=== PATIENT | male | born 1965 | race Caucasian/White ===

== ENCOUNTER 2017-01-16 11:13 | Day surgery (SDC) | payer OTHER ==
[2017-01-16] MEDS ORDERED: PROPOFOL 20 ML ONE ×2 (11:56)
[2017-01-16 12:21] VITALS: BMI 22.2
[2017-01-16 13:28] VITALS: TEMP 97.5
[2017-01-16 15:04] VITALS: BP 109/50; PULSE 64
--- NOTE | 2017-01-19 13:15 | PATH ---
Surgical Pathology Report Patient Name: MARISELA CISNEROS [facility]. Rec. #: [id number] /Age/Gender: 1965 (Age: 51) / M Account: [id number] Location: U-ENDOSCOPY Taken: 01/16/2017 Received: 01/16/2017 Reported: 01/19/2017 Physicians: Colt Swift M.D. Specimen(s) Received A: BX RECTAL POLYP B: BX POLYP CECUM C: BX POLYP SIGMOID Clinical History Colon cancer screening, previous suboptimal prep Colon polyps, diverticulosis Final Diagnosis A. RECTUM, POLYP, BIOPSY: HYPERPLASTIC POLYP. B. COLON, CECUM, POLYP, BIOPSY: POLYPOID FRAGMENTS OF COLONIC MUCOSA WITH PROMINENT REACTIVE LYMPHOID AGGREGATE. C. COLON, SIGMOID, POLYP, BIOPSY: FRAGMENTS OF HYPERPLASTIC-TYPE POLYP WITH FEATURES OF SESSILE SERRATED ADENOMA. Electronically Signed Carlos Arnold M.D. Gross Description A. Received in formalin, labeled "rectal polyp" are 2 [place], irregular portions of soft tissue averaging 0.2 cm in greatest dimension. The specimens are submitted in toto in one cassette. B. Received in formalin, labeled "biopsy polyp cecum" are 3 [place], irregular portions of soft tissue averaging 0.1 cm in greatest dimension. The specimens are submitted in toto in one cassette. C. Received in formalin, labeled "biopsy polyp sigmoid" are 3 [place], irregular portions of soft tissue ranging from 0.1-0.4 cm in greatest dimension. The specimens are submitted in toto in one cassette. [id number]/[id number]/2017
== END 2017-01-16 14:00 | disposition home or self-care (01) ==
LOC: JASU-ENDO 11:13
PROVIDERS: ATTEND Internal Medicine Gastroenterology
PROC: 0DBH8ZX Excision of Cecum, Via Natural or Artificial Opening Endoscopic, Diagnostic (ICD-10-PCS; 2017-01-16)
PROC: 0DBN8ZX Excision of Sigmoid Colon, Via Natural or Artificial Opening Endoscopic, Diagnostic (ICD-10-PCS; 2017-01-16)
PROC: 0DBP8ZX Excision of Rectum, Via Natural or Artificial Opening Endoscopic, Diagnostic (ICD-10-PCS; principal; 2017-01-16 12:30)
DX: Z12.11 Encounter for screening for malignant neoplasm of colon (principal); K62.1 Rectal polyp; D12.0 Benign neoplasm of cecum; D12.5 Benign neoplasm of sigmoid colon; K57.30 Diverticulosis of large intestine without perforation or abscess without bleeding; K64.8 Other hemorrhoids
CPT/HCPCS: 88305-TC

== ENCOUNTER 2017-02-07 11:08 | Emergency (ER) | payer OTHER ==
[2017-02-07 11:15] VITALS: BP 110/68; PULSE 75; TEMP 98.2; BMI 21.8
--- NOTE | 2017-02-07 11:35 | PDOC ---
History of Present Illness - General Chief Complaint: Eye Problem Stated Complaint: ALLERGIES Time Seen by Provider: 02/07/17 11:31 - History of Present Illness Initial Comments: 02/07/17 13:06 Pt. is a 51 y/o male who has a PMH of deafness, presents to the ED complaining of itchy eyes and sneezing for one week. Pt communicated through pen and paper. Pt. states that his symptoms started one week ago. Admits to itchy eyes, congestion, sneezing and a post nasal drip. Denies fevers, chills, n/v/d. Pt. did not use any over the counter treatments for his symptoms. Denies vision changes, spots, floaters, diploplia. Denies foreign body sensation in the eye Past History - Past Medical History Allergies/Adverse Reactions: Allergies Allergy/AdvReac Type Severity Reaction Status Date / Time No Known Allergies Allergy Verified 02/07/17 11:13 Home Medications: Ambulatory Orders Fluticasone Prop 0.05% Nasal [Flonase -] 1 - 2 spray NS DAILY #1 spray.pump 03/21 Ketotifen Fumarate [Eye Itch Relief] 10 ml OP BID #1 drops 02/07/17 Anemia: No Asthma: No Cancer: No Cardiac Disorders: No CVA: No COPD: No CHF: No Dementia: No Diabetes: No GI Disorders: No Disorders: No HTN: No Hypercholesterolemia: No Liver Disease: No Seizures: No Thyroid Disease: No Other medical history: DEAF - Surgical History Abdominal Surgery: No Appendectomy: No Cardiac Surgery: No Cholecystectomy: No Lung Surgery: No Neurologic Surgery: No Orthopedic Surgery: No - Psycho/Social/Smoking Cessation Hx Anxiety: No Suicidal Ideation: No Smoking History: Never smoked Hx Alcohol Use: No Drug/Substance Use Hx: No Substance Use Type: None Hx Substance Use Treatment: No *Physical Exam - Vital Signs Last Vital Signs Temp Pulse Resp BP Pulse Ox 98.2 F 75 20 110/68 98 02/07/17 11:09 02/07/17 11:09 02/07/17 11:09 02/07/17 11:09 02/07/17 11:09 - Physical Exam General Appearance: Yes: Nourished, Appropriately Dressed HEENT: positive: EOMI, PIYUSH, Pale Conjunctivae (with mild redness of conjunctiva ), Pharyngeal Erythema, Nasal Congestion, Rhinorrhea, TM Dull (with sclerosis of the membrane), Other (Fundoscopic exam shows no hemorrhage, normal cup size. ) Neck: positive: Trachea midline, Normal Thyroid. negative: Lymphadenopathy (R) , Lymphadenopathy (L) Respiratory/Chest: positive: Lungs Clear, Normal Breath Sounds, Rhonchi. negative: Accessory Muscle Use, Rales, Wheezing Cardiovascular: positive: Regular Rhythm, Regular Rate Medical Decision Making - Medical Decision Making 02/07/17 13:14 Pt. is a 51 y/o male presenting with itchy eyes, nasal congestion and serous fluid behind his membranes. Given his symptoms and history will treat pt. for seasonal allergies. Educated about seasonal allergies and instructed pt. to supervisor opening and picking Claritin or Zyrtec. Prescribed flonase and ketotfin for symptomatic relief. Pt. communicated understanding and has no questions at this time. *DC/Admit/Observation/Transfer Diagnosis at time of Disposition: Seasonal allergies Qualifiers: Allergic rhinitis trigger: other Qualified Code(s): J30.89 - Other allergic rhinitis - Discharge Dispostion Admit: No - Prescriptions Prescriptions: Ketotifen Fumarate [Eye Itch Relief] 10 ml OP BID #1 drops Fluticasone Prop 0.05% Nasal [Flonase -] 1 - 2 spray NS DAILY #1 spray.pump - Referrals Referrals: Leslie Zaidi MD [Primary Care Provider] - - Patient Instructions Printed Discharge Instructions: Allergic Rhinitis Additional Instructions: You have seasonal allergies. This is causing your itchy eyes. You were prescribed Flonase nasal spray and ketotifen eye drops to manage your symptoms. Start taking either Claritin or Zyrtec daily. These medications are over the counter. Keep your eyes moist to prevent any further irritation. In addition to the prescription eye drops, you may also use artificial tears (over the counter at the pharmacy) as needed. If your symptoms do not resolve or if you develop fevers, chills, or any new symptoms, return to the emergency department.
== END 2017-02-07 12:21 | disposition home or self-care (01) ==
LOC: JERFT 11:08 → JER 11:08 → JERFT 12:21
DX: J30.2 Other seasonal allergic rhinitis (principal); H91.90 Unspecified hearing loss, unspecified ear
CPT/HCPCS: 99281-25

== ENCOUNTER 2018-09-10 09:08 | Inpatient (IN) | payer OTHER ==
[2018-09-10 09:38] VITALS: BMI 22.9
--- NOTE | 2018-09-10 09:43 | PDOC ---
History of Present Illness - General Chief Complaint: Revisit, Lab Variance Stated Complaint: ABNORMAL LABS - History of Present Illness Initial Comments: The patient is a 53M w/ a history of deafness, and a urinary catheter in place who presents for evaluation after having an abn UA w/ UCx significant for psudomonas UTI. The patient reports a history of BPH, the catheter was placed [address] Lawton. Endorses lower abdominal pain. Denies pain at urethra meatus. Denies penile discharge. Denies fevers/chills, back pain, chest pain, SOB, hematuria, N/V/C/D, or blood in stool Pt interview conducted with signal inspector 09/10/18 09:42 Past History - Past Medical History Allergies/Adverse Reactions: Allergies Allergy/AdvReac Type Severity Reaction Status Date / Time No Known Allergies Allergy Verified 09/10/18 09:22 Home Medications: Ambulatory Orders NK [No Known Home Medication] 09/10/18 Anemia: No Asthma: No Cancer: No Cardiac Disorders: No CVA: No COPD: No CHF: No Dementia: No Diabetes: No GI Disorders: No Disorders: No HTN: No Hypercholesterolemia: No Liver Disease: No Seizures: No Thyroid Disease: No Other medical history: BPH - Surgical History Abdominal Surgery: No Appendectomy: No Cardiac Surgery: No Cholecystectomy: No Lung Surgery: No Neurologic Surgery: No Orthopedic Surgery: No - Immunization History Immunization Up to Date: Yes - Suicide/Smoking/Psychosocial Hx Smoking History: Former smoker Have you smoked in the past 12 months: No If you are a former smoker, when did you quit?: 30 yrs ago Information on smoking cessation initiated: No Hx Alcohol Use: No Drug/Substance Use Hx: No Substance Use Type: None Hx Substance Use Treatment: No Review of Systems - Review of Systems Able to Perform ROS?: Yes (w/ use of conference interpreter) Comments:: GENERAL/CONSTITUTIONAL: No fever or chills. No weakness HEAD, EYES, EARS, NOSE AND THROAT: No change in vision. No ear pain or discharge. No sore throat CARDIOVASCULAR: No chest pain or shortness of breath RESPIRATORY: Denies cough, hemoptysis GASTROINTESTINAL: No nausea, vomiting, diarrhea or constipation GENITOURINARY: +fabian in place; +difficulty urinating prior to fabian placement MUSCULOSKELETAL: No joint or muscle swelling or pain. No neck or back pain SKIN: No rash NEUROLOGIC: No headache, vertigo, loss of consciousness, or change in strength/ sensation ENDOCRINE: No increased thirst. No abnormal weight change HEMATOLOGIC/LYMPHATIC: No anemia, easy bleeding, or history of blood clots ALLERGIC/IMMUNOLOGIC: No hives or skin allergy 09/10/18 10:11 *Physical Exam - Vital Signs Last Vital Signs Temp Pulse Resp BP Pulse Ox 98.1 F 79 18 100/67 98 09/10/18 09:22 09/10/18 09:22 09/10/18 09:22 09/10/18 09:22 09/10/18 09:22 - Physical Exam Comments: GENERAL: Awake, alert, and fully oriented, in no acute distress HEAD: No signs of trauma, normocephalic, atraumatic EYES: PERRLA, EOMI, sclera anicteric, conjunctiva clear ENT: Hearing grossly normal, nares patent, oropharynx clear without exudates. Moist mucosa LUNGS: No distress, speaks full sentences, clear to auscultation bilaterally HEART: Regular rate and rhythm, normal S1 and S2, no murmurs appreciated, peripheral pulses normal and equal bilaterally ABDOMEN: Soft, suprapubic TTP w/o rebound or guarding, normoactive bowel sounds : fabian in place, urine in fabian bag cloudy and yellow-orange in color EXTREMITIES : Normal inspection, Normal range of motion, no edema. No clubbing or cyanosis NEUROLOGICAL: Cranial nerves II through XII grossly intact. Normal speech, normal gait, no focal sensorimotor deficits SKIN: Warm, Dry, normal turgor, no rashes or lesions noted 09/10/18 10:12 Moderate Sedation - Procedure Monitoring Vital Signs: Procedure Monitoring Vital Signs Temperature 98.1 F 09/10/18 09:22 Pulse Rate 79 09/10/18 09:22 Respiratory Rate 18 09/10/18 09:22 Blood Pressure 100/67 09/10/18 09:22 O2 Sat by Pulse Oximetry (%) 98 09/10/18 09:22 ED Treatment Course - LABORATORY CBC & Chemistry Diagram: 09/10/18 10:36 09/10/18 10:36 Medical Decision Making - Medical Decision Making The patient is a 53M w/ a history of BPH who presents for evaluation of a Ucx significant for pseudomonas UTI ED Course UA, UCx, CMP, CBC 09/10/18 10:14 No leukocytosis No anemia No DAGOBERTO Lytes wnl LFTs wnl Fabian replaced w/ 16f catheter 09/10/18 11:35 UA pending 09/10/18 12:41 UA: LE 3+ Ceftazadime 1g IV once based on sensitivities patient brought in from recent UCx 09/10/18 13:16 Dispo: admit for IV abx 09/10/18 15:27 *DC/Admit/Observation/Transfer Diagnosis at time of Disposition: Pseudomonas urinary tract infection - Discharge Dispostion Condition at time of disposition: Stable - Referrals Referrals: Leslie Zaidi MD [Primary Care Provider] - Eladio Lawton MD [Staff Physician] - - Patient Instructions Printed Discharge Instructions: DI for Urinary Tract Infection (UTI) - Post Discharge Activity
--- NOTE | 2018-09-10 10:39 | PDOC ---
Attending Attestation - HPI HPI: 09/10/18 10:57 The patient is a 53 year old male, with a significant past medical history of deafness and BPH, who presents to the emergency department with, abnormal UA results. As per patient, his urologist placed a catheter a week ago and upon routine urine testing it was found to be pseudomonas positive. He endorses his urine in the catheter has been cloudy, concentrated, and he has been experiencing suprapubic pressure without hematuria. He notes prior to his catheter he was experiencing dysuria and retention. He denies any recent fevers, chills, headache or dizziness. He denies any recent nausea, vomit, diarrhea or constipation. He denies any recent chest pain or shortness of breath. Allergies: NKDA Social History: Nonsmoker. Denies EtOH use and recreational drug use. Primary Care Physician: Dr. Zaidi Urologist: Dr. Lawton <[email or web address] - Last Filed: 09/10/18 10:57> - Resident Resident Name: Rikki Archer - ED Attending Attestation I have performed the following: I have examined & evaluated the patient, The case was reviewed & discussed with the resident, I agree w/resident's findings & plan, Exceptions are as noted - Physicial Exam PE: 09/11/18 16:27 see above - Medical Decision Making 09/10/18 10:38 53y M hx of bph presents with +urine culture for pseudomonas, pt had recent fabian placed 1 week ago. pt is otherwise asymptomatic without any complaints of fever/chills, back pain, hematuria, n/v. pt notes some couldy urine. no history of urinary tract infections. urologist - dr. Adal Win GENERAL: The patient is awake, alert, and fully oriented, Nontoxic - in no acute distress. LUNGS: Breath sounds equal, clear to auscultation bilaterally. No wheezes, no rhonchi, no rales. HEART: Regular rate and rhythm, normal S1 and S2 without murmur, rub or gallop. ABDOMEN: Soft, nontender, normoactive bowel sounds. No guarding, no rebound. No CVA tenderness SKIN: Warm, Dry, normal turgor, will ck bsaic labs repeat UA adin ldiscuss with dr. adal win - ossible outpatient management with a flouroquinalone 12/07/18 12:[address] neff office requests admission for ivabx as pt has many resistant organisms (pt has outpatient culture and sensitivity results) <Balwinder Oconnor - Last Filed: 09/11/18 16:28> Attestations - Attestations 09/10/18 10:57 Documentation prepared by Elvia Linares, acting as director medical safety for Balwinder Oconnor MD. <Elvia Linares - Last Filed: 09/10/18 10:57>
[2018-09-10 11:02] LABS: HEMATOCRIT 42.5 % (35.4-49); HEMOGLOBIN 13.5 GM/dL (11.7-16.9); MCH 28.7 pg (25.7-33.7); MCHC 31.7 g/dl (32.0-35.9); MEAN CELL VOLUME 90.4 fl (80-96); MEAN PLT VOLUME 7.1 fl (7.5-11.1); PLATELET COUNT 173 K/MM3 (134-434); RDW 14.3 % (11.9-15.9); WHITE BLOOD COUNT 3.7 K/mm3 (4.0-10.0)
[2018-09-10 11:25] LABS: ALBUMIN 3.4 g/dl (3.4-5.0); ALK PHOS 86 U/L (45-117); ANION GAP 7 MMOL/L (8-16); BILIRUBIN,TOTAL 0.5 mg/dL (0.2-1); BLOOD UREA NITROGEN 19 mg/dL (7-18); CALCIUM 8.4 mg/dL (8.5-10.1); CHLORIDE 107 mmol/L (98-107); CO2 28 mmol/L (21-32); CREATININE 0.9 mg/dL (0.55-1.3); GLUCOSE,RANDOM 88 mg/dL (74-106); POTASSIUM 4.2 mmol/L (3.5-5.1); SGOT/AST 23 U/L (15-37); SGPT/ALT 24 U/L (13-61); SODIUM 142 mmol/L (136-145); TOT PROT 6.6 g/dl (6.4-8.2)
[2018-09-10 12:40] LABS: URINE APPEARANCE SLCLOUDY; URINE BILIRUBIN NEGATIVE (<2.0 mg/dL); URINE COLOR STRAW; URINE GLUCOSE (UA) NEGATIVE (NEGATIVE); URINE KETONE NEGATIVE (NEGATIVE); URINE LEUK ESTERASE 3+ (NEGATIVE); URINE NITRITE NEGATIVE (NEGATIVE); URINE PROTEIN NEGATIVE (NEGATIVE); URINE UROBILINOGEN NEGATIVE mg/dL (0.2-1.0)
[2018-09-10 13:16] LABS: URINE BACTERIA MANY /hpf (NONE SEEN)
[2018-09-10] MEDS ORDERED: cefTAZidime PENTAHYDRATE 1 GM/10 ML SYRINGE (RESTRICTED TO ID) IVPUSH ONE (13:16)
--- NOTE | 2018-09-10 14:03 | PN ---
Teaching Attending Note Name of Resident: Lea Recinos ATTENDING PHYSICIAN STATEMENT I saw and evaluated the patient. I reviewed the resident's note and discussed the case with the resident. I agree with the resident's findings and plan as documented. SUBJECTIVE: Patient is a 53yo male with a PMHx of of deafness( congenital since age 1yo) who presents with having urinary urgency with frequency , no fever but rigors om and off . Patient had a cystoscopy less then a month ago. He was following up with Jered for having burning on urination and chills. A urine culture grew Pseudomonas and he was instructed to go to the ED. Patient reports he has not had symptoms like this in the past. He has noticed blood in his urine. He denies any recent sexual contacts. Patient was on Ciprofloxacin on 08/16. Used deaf talk, guyanese sign language to interpret for patient. OBJECTIVE: Vital Signs Temperature 98.1 F 09/10/18 13:16 Pulse Rate 68 09/10/18 13:16 Respiratory Rate 17 09/10/18 13:16 Blood Pressure 99/63 09/10/18 13:16 O2 Sat by Pulse Oximetry (%) 100 09/10/18 13:16 GENERAL: Awake, alert, and fully oriented, in no acute distress. HEAD: Normal with no signs of trauma. EYES: Pupils equal, round and reactive to light, extraocular movements intact EARS, NOSE, THROAT: Moist mucous membranes. NECK: Normal range of motion LUNGS: Breath sounds equal, clear to auscultation bilaterally. No wheezes, and no crackles. No accessory muscle use. HEART: Regular rate and rhythm, normal S1 and S2 without murmur, rub or gallop. ABDOMEN: tenderness to periumbilical palpation MUSCULOSKELETAL: Normal range of motion at all joints. No bony deformities or tenderness. No CVA tenderness. LOWER EXTREMITIES: 2+ pulses, warm, well-perfused. No calf tenderness. No peripheral edema. NEUROLOGICAL: Cranial nerves II-XII intact. Normal speech. PSYCHIATRIC: Cooperative. Good eye contact. Appropriate mood and affect. SKIN: Warm, dry, normal turgor, no rashes or lesions noted, normal capillary refill. CBCD WBC 3.7 K/mm3 (4.0-10.0) L 09/10/18 10:36 RBC 4.70 M/mm3 (4.00-5.60) 09/10/18 10:36 Hgb 13.5 GM/dL (11.7-16.9) 09/10/18 10:36 Hct 42.5 % (35.4-49) 09/10/18 10:36 MCV 90.4 fl (80-96) 09/10/18 10:36 MCHC 31.7 g/dl (32.0-35.9) L 09/10/18 10:36 RDW 14.3 % (11.9-15.9) 09/10/18 10:36 Plt Count 173 K/MM3 (134-434) 09/10/18 10:36 MPV 7.1 fl (7.5-11.1) L 09/10/18 10:36 CMP Sodium 142 mmol/L (136-145) 09/10/18 10:36 Potassium 4.2 mmol/L (3.5-5.1) 09/10/18 10:36 Chloride 107 mmol/L (98-107) 09/10/18 10:36 Carbon Dioxide 28 mmol/L (21-32) 09/10/18 10:36 Anion Gap 7 MMOL/L (8-16) L 09/10/18 10:36 BUN 19 mg/dL (7-18) H 09/10/18 10:36 Creatinine 0.9 mg/dL (0.55-1.3) 09/10/18 10:36 Creat Clearance w eGFR > 60 (>60) 09/10/18 10:36 Random Glucose 88 mg/dL (74-106) 09/10/18 10:36 Calcium 8.4 mg/dL (8.5-10.1) L 09/10/18 10:36 Total Bilirubin 0.5 mg/dL (0.2-1) 09/10/18 10:36 AST 23 U/L (15-37) 09/10/18 10:36 ALT 24 U/L (13-61) 09/10/18 10:36 Alkaline Phosphatase 86 U/L (45-117) 09/10/18 10:36 Total Protein 6.6 g/dl (6.4-8.2) 09/10/18 10:36 Albumin 3.4 g/dl (3.4-5.0) 09/10/18 10:36 Current Medications Generic Name Dose Route Start Last Admin Trade Name Benitoq PRN Reason Stop Dose Admin Ceftazidime 2 gm 09/10/18 18:00 Fortaz 1 Gm Ivpb (Pre-Docked) IVPB Q8H-IV [facility] Protocol Heparin Sodium (Porcine) 5,000 unit 09/10/18 18:00 Heparin - SQ Q8H-IV [facility] Home Medications Medication Instructions Recorded NK [No Known Home Medication] 09/10/18 ASSESSMENT AND PLAN: Patient is a 53 y/o male with a history deafness who presents to ED. for UTI. patient has a fabian catheter( came in from home with bed #Acute UTI due to Pseudomonas will start Ceftazidime 1 gm (sensitive) , ID consult Dr. Mendez #BPH continue tamsulosin # Hx of Congenital deafness #DVT ppx: heparin TID
--- NOTE | 2018-09-10 14:58 | HP ---
CHIEF COMPLAINT: dysuria PCP: HISTORY OF PRESENT ILLNESS: Patient is a 53 y/o male with a history deafness who presents for UTI. Patient had a cystoscopy less then a month ago. He was following up with Jered for having burning on urination and chills. A urine culture grew Pseudomonas and he was instructed to go to the ED. Patient reports he has not had symptoms like this in the past. He has noticed blood in his urine. He denies any recent sexual contacts. No recent travel. Denies chest pain, nausea, vomiting, or shortness of breath. Patient took Ciprofloxacin on 08/16. Used deaf talk, bots[place]an sign language to interpret for patient. ER course was notable for: (1) (2) (3) Recent Travel: denies PAST MEDICAL HISTORY: deafness at the age of [age] due to fluid in his head) PAST SURGICAL HISTORY: denies Social History: Smoking: denies Alcohol: denies Drugs: denies Family History: Allergies No Known Allergies Allergy (Verified 09/10/18 09:22) HOME MEDICATIONS: Home Medications Medication Instructions Recorded NK [No Known Home Medication] 09/10/18 REVIEW OF SYSTEMS CONSTITUTIONAL: chills Absent: fever, diaphoresis, generalized weakness, malaise, loss of appetite, weight change HEENT: Absent: rhinorrhea, nasal congestion, throat pain, throat swelling, difficulty swallowing, mouth swelling, ear pain, eye pain, visual changes CARDIOVASCULAR: Absent: chest pain, syncope, palpitations, irregular heart rate, lightheadedness , peripheral edema RESPIRATORY: Absent: cough, shortness of breath, dyspnea with exertion, orthopnea, wheezing, stridor, hemoptysis GASTROINTESTINAL: Absent: abdominal pain, abdominal distension, nausea, vomiting, diarrhea, constipation, melena, hematochezia GENITOURINARY: frequency, dysuria, hematuria Absent: urgency, hesitancy, flank pain, genital pain MUSCULOSKELETAL: Absent: myalgia, arthralgia, joint swelling, back pain, neck pain SKIN: Absent: rash, itching, pallor HEMATOLOGIC/IMMUNOLOGIC: Absent: easy bleeding, easy bruising, lymphadenopathy, frequent infections ENDOCRINE: Absent: unexplained weight gain, unexplained weight loss, heat intolerance, cold intolerance NEUROLOGIC: Absent: headache, focal weakness or paresthesias, dizziness, unsteady gait, seizure, mental status changes, bladder or bowel incontinence PSYCHIATRIC: Absent: anxiety, depression, suicidal or homicidal ideation, hallucinations. PHYSICAL EXAMINATION Vital Signs - 24 hr 09/10/18 09/10/18 09:22 13:16 Temperature 98.1 F 98.1 F Pulse Rate 79 Pulse Rate [ 68 Right Radial] Respiratory 18 17 Rate Blood Pressure 100/67 Blood Pressure 99/63 [Left Arm] O2 Sat by Pulse 98 100 Oximetry (%) GENERAL: Awake, alert, and fully oriented, in no acute distress. HEAD: Normal with no signs of trauma. EYES: Pupils equal, round and reactive to light, extraocular movements intact EARS, NOSE, THROAT: Moist mucous membranes. NECK: Normal range of motion LUNGS: Breath sounds equal, clear to auscultation bilaterally. No wheezes, and no crackles. No accessory muscle use. HEART: Regular rate and rhythm, normal S1 and S2 without murmur, rub or gallop. ABDOMEN: tenderness to periumbilical palpation MUSCULOSKELETAL: Normal range of motion at all joints. No bony deformities or tenderness. No CVA tenderness. LOWER EXTREMITIES: 2+ pulses, warm, well-perfused. No calf tenderness. No peripheral edema. NEUROLOGICAL: Cranial nerves II-XII intact. Normal speech. PSYCHIATRIC: Cooperative. Good eye contact. Appropriate mood and affect. SKIN: Warm, dry, normal turgor, no rashes or lesions noted, normal capillary refill. CBC, BMP 09/10/18 10:36 09/10/18 10:36 Urine Test Results Urine Color Straw 09/10/18 11:38 Urine Appearance Slcloudy 09/10/18 11:38 Urine pH 6.0 (5.0-8.0) 09/10/18 11:38 Ur Specific Gilman 1.002 (1.010-1.035) L 09/10/18 11:38 Urine Protein Negative (NEGATIVE) 09/10/18 11:38 Urine Glucose (UA) Negative (NEGATIVE) 09/10/18 11:38 Urine Ketones Negative (NEGATIVE) 09/10/18 11:38 Urine Blood 2+ (NEGATIVE) H 09/10/18 11:38 Urine Nitrite Negative (NEGATIVE) 09/10/18 11:38 Urine Bilirubin Negative (<2.0 mg/dL) 09/10/18 11:38 Ur Leukocyte Esterase 3+ (NEGATIVE) H 09/10/18 11:38 Urine Bacteria Many /hpf (NONE SEEN) 09/10/18 11:38 ASSESSMENT/PLAN: Patient is a 53 y/o male with a history deafness who presents for UTI. #sepsis 2/2 to UTI 2/2 to Pseudomonas - Ceftazidime 1 gm (sensitive) - f/u ID consult Dr. Mendez - f/u renal and bladder US - BP 99/63 - WBC: 3.7 - bcx pending - UA: 3+ LE, 2+ blood WBC: 64, many bacteria - fabian in place - f/u morning labs - failed outpatient abx, recently on Ciprofloxacin 500 mg #BPH - continue tamsulosin #DVT ppx - heparin TID FEN - regular diet - monitor on med surg Dispo: monitor clinically, continue IV abx Visit type - Emergency Visit Emergency Visit: No - New Patient This patient is new to me today: No - Critical Care Critical Care patient: No
[2018-09-10] MEDS ORDERED: CEFTAZIDIME PENTAHYDRATE 1 GM in DEXTROSE 5%-WATER 100 ML IVPB SCH (18:00)
[2018-09-10] MEDS: HEPARIN NA (PORCINE) 5,000 UNITS/ML 1ML VIAL SQ SCH (23:01)
[2018-09-10] MEDS: SODIUM CHLORIDE 1,000 ML IV SCH (23:01)
[2018-09-11] MEDS: CEFTAZIDIME PENTAHYDRATE 1 GM in DEXTROSE 5%-WATER 100 ML IVPB SCH ×3 (00:12→17:38)
[2018-09-11] MEDS: HEPARIN NA (PORCINE) 5,000 UNITS/ML 1ML VIAL SQ SCH ×3 (06:20→21:13)
[2018-09-11 06:58] LABS: BASO % 0.9 % (0-2.0); EOS % 4.3 % (0-4.5); HEMATOCRIT 43.1 % (35.4-49); HEMOGLOBIN 13.8 GM/dL (11.7-16.9); LYMPH % 40.2 % (8-40); MCHC 32.1 g/dl (32.0-35.9); MEAN CELL VOLUME 90.2 fl (80-96); MEAN PLT VOLUME 7.4 fl (7.5-11.1); MONO % 8.4 % (3.8-10.2); NEUT % 46.2 % (42.8-82.8); PLATELET COUNT 162 K/MM3 (134-434); RBC 4.78 M/mm3 (4.00-5.60); RDW 14.3 % (11.9-15.9); WHITE BLOOD COUNT 3.7 K/mm3 (4.0-10.0)
[2018-09-11 07:41] LABS: ALBUMIN 3.1 g/dl (3.4-5.0); ALK PHOS 75 U/L (45-117); ANION GAP 7 MMOL/L (8-16); BILIRUBIN,TOTAL 0.6 mg/dL (0.2-1); BLOOD UREA NITROGEN 12 mg/dL (7-18); CALCIUM 8.2 mg/dL (8.5-10.1); CHLORIDE 108 mmol/L (98-107); CO2 27 mmol/L (21-32); CREATININE 0.9 mg/dL (0.55-1.3); GLUCOSE,RANDOM 82 mg/dL (74-106); MAGNESIUM 2.2 mg/dL (1.8-2.4); PHOSPHOROUS 3.6 mg/dL (2.5-4.9); POTASSIUM 4.3 mmol/L (3.5-5.1); SGOT/AST 24 U/L (15-37); SGPT/ALT 20 U/L (13-61); SODIUM 142 mmol/L (136-145); TOT PROT 6.3 g/dl (6.4-8.2)
[2018-09-11] MEDS: SODIUM CHLORIDE 1,000 ML IV SCH (08:39)
[2018-09-11] MEDS: TAMSULOSIN HCL 0.4 MG CAP PO SCH (09:39)
--- NOTE | 2018-09-11 15:19 | PN ---
Progress Note (short form) - Note Progress Note: ID Consult dictated Pseudomonas UTI Urinary retention Leukopenia Await c/s Continue ceftazidime Urology follow up
--- NOTE | 2018-09-11 16:41 | CONS ---
DATE OF CONSULTATION: DATE OF DICTATION: 09/11/2018 HISTORY OF PRESENT ILLNESS: The patient is a 53-year-old male evaluated for a positive urine culture. His history is obtained from the chart. He had apparently undergone a cystoscopy less than a month ago for BPH. He required insertion of a Hooker catheter approximately one week ago for acute urinary retention. He is now admitted to the hospital with reports of recent dysuria, chills and gross hematuria. According to the notes, he had been treated with ciprofloxacin. However, a urine culture was positive for a quinolone-resistant pseudomonas. His hospital course has been significant for leukopenia. He has been afebrile. PAST MEDICAL HISTORY: Positive for benign prostatic hypertrophy and deafness . ALLERGIES: No known drug allergies. CURRENT MEDICATIONS: Ceftazidime and Flomax. SOCIAL HISTORY: The patient lives at home in the community. He is a former smoker. LABORATORY DATA: White count 3.7, 46 neutrophils, 40 lymphocytes, 8 monocytes. Hematocrit 43.1, platelet count 162, creatinine 0.9. Urinalysis showed 64 white cells. A urine culture is growing presumed pseudomonas. PHYSICAL EXAMINATION: General: The patient is awake. He has a hearing deficit. He does not appear acutely toxic. Vital Signs: Temperature 98.4, pulse 60 and regular, blood pressure 104/54, respiratory rate 28 per minute. HEENT:: Sclerae anicteric. Heart: Heart sounds S1, S2. Lungs: Clear. Abdomen: Soft. No suprapubic or flank tenderness. Extremities: Negative for edema. A Hooker catheter is in place. Urine is concentrated. IMPRESSION: 1. Pseudomonas urinary tract infection. 2. Urinary retention status post Hooker catheter insertion. 3. Leukopenia. PLAN: 1. Await urine culture result. 2. Continue ceftazidime 1 gram IV piggyback every 8 hours pending culture results. 3. Urology followup. Thank you for the kind referral. DIEGO PINEDA M.D. [id number]
[2018-09-11] MEDS ORDERED: PT OWN MED DRAWER 7, Y5N ONE ×3 (17:12→23:33)
--- NOTE | 2018-09-11 17:29 | PN ---
Progress Note (short form) - Note Progress Note: Patient is feeling better today, no fever or pain, no headache, no CVA tenderness. Vital Signs Temperature 98.4 F 09/11/18 14:00 Pulse Rate 60 09/11/18 14:00 Respiratory Rate 18 09/11/18 14:00 Blood Pressure 104/54 L 09/11/18 14:00 O2 Sat by Pulse Oximetry (%) 97 09/10/18 21:00 GENERAL: Awake, alert, and fully oriented, in no acute distress. HEAD: Normal with no signs of trauma. EYES: Pupils equal, round and reactive to light, extraocular movements intact EARS, NOSE, THROAT: Moist mucous membranes. NECK: Normal range of motion LUNGS: Breath sounds equal, clear to auscultation bilaterally. No wheezes, and no crackles. No accessory muscle use. HEART: Regular rate and rhythm, normal S1 and S2 without murmur, rub or gallop. ABDOMEN: no tenderness today, BS positive MUSCULOSKELETAL: Normal range of motion at all joints. No bony deformities or tenderness. No CVA tenderness today. EXTREMITIES: 2+ pulses, warm, well-perfused. No calf tenderness. No peripheral edema. NEUROLOGICAL: Cranial nerves II-XII intact. Normal speech. PSYCHIATRIC: Cooperative. Good eye contact. Appropriate mood and affect. SKIN: Warm, dry, normal turgor, no rashes or lesions noted, normal capillary refill. : positive for Hooker catether CBCD WBC 3.7 K/mm3 (4.0-10.0) L 09/11/18 06:30 RBC 4.78 M/mm3 (4.00-5.60) 09/11/18 06:30 Hgb 13.8 GM/dL (11.7-16.9) 09/11/18 06:30 Hct 43.1 % (35.4-49) 09/11/18 06:30 MCV 90.2 fl (80-96) 09/11/18 06:30 MCHC 32.1 g/dl (32.0-35.9) 09/11/18 06:30 RDW 14.3 % (11.9-15.9) 09/11/18 06:30 Plt Count 162 K/MM3 (134-434) 09/11/18 06:30 MPV 7.4 fl (7.5-11.1) L 09/11/18 06:30 CMP Sodium 142 mmol/L (136-145) 09/11/18 06:30 Potassium 4.3 mmol/L (3.5-5.1) 09/11/18 06:30 Chloride 108 mmol/L (98-107) H 09/11/18 06:30 Carbon Dioxide 27 mmol/L (21-32) 09/11/18 06:30 Anion Gap 7 MMOL/L (8-16) L 09/11/18 06:30 BUN 12 mg/dL (7-18) 09/11/18 06:30 Creatinine 0.9 mg/dL (0.55-1.3) 09/11/18 06:30 Creat Clearance w eGFR > 60 (>60) 09/11/18 06:30 Random Glucose 82 mg/dL (74-106) 09/11/18 06:30 Calcium 8.2 mg/dL (8.5-10.1) L 09/11/18 06:30 Total Bilirubin 0.6 mg/dL (0.2-1) 09/11/18 06:30 AST 24 U/L (15-37) 09/11/18 06:30 ALT 20 U/L (13-61) 09/11/18 06:30 Alkaline Phosphatase 75 U/L (45-117) 09/11/18 06:30 Total Protein 6.3 g/dl (6.4-8.2) L 09/11/18 06:30 Albumin 3.1 g/dl (3.4-5.0) L 09/11/18 06:30 Current Medications Generic Name Dose Route Start Last Admin Trade Name Benitoq PRN Reason Stop Dose Admin Heparin Sodium (Porcine) 5,000 unit 09/10/18 22:00 09/11/18 13:59 Heparin - SQ 5,000 unit TID ESEQUIEL Administration Sodium Chloride 1,000 mls @ 125 mls/hr 09/10/18 19:45 09/11/18 08:39 Normal Saline - IV 09/12/18 03:44 125 mls/hr ASDIR ESEQUIEL Administration Ceftazidime 1 gm/ Dextrose 100 mls @ 200 mls/hr 09/11/18 18:00 IVPB Q8H-IV ESEQUIEL Protocol Tamsulosin HCl 0.4 mg 09/11/18 08:30 09/11/18 09:39 Flomax - PO 0.4 mg DAILY@0830 [facility] Administration Home Medications Medication Instructions Recorded Tamsulosin HCl 0.4 mg PO DAILY 09/10/18 Microbiology 09/10/18 09:41 Urine - Urine Hooker Urine Culture - Preliminary Presumptive Ps Aeruginosa Non Lactose Fermenting Gnb ASSESSMENT AND PLAN: Patient is a 53 y/o male with a history deafness who presents for UTI. #Acute UTI due to Pseudomonas continue Ceftazidime 1 gm (sensitive) , ID consult Dr. Mendez appreciated , US and renal US report in place. Mild hydronephrosis will get [place] consult. #BPH continue tamsulosin # Hx of Congenital deafness #DVT ppx: heparin TID Visit type - Emergency Visit Emergency Visit: Yes ED Registration Date: 09/10/18 Care time: The patient presented to the Emergency Department on the above date and was hospitalized for further evaluation of their emergent condition. - New Patient This patient is new to me today: No - Critical Care Critical Care patient: No - Discharge Referral Referred to [facility] No
[2018-09-12] MEDS: CEFTAZIDIME PENTAHYDRATE 1 GM in DEXTROSE 5%-WATER 100 ML IVPB SCH ×3 (02:37→17:59)
[2018-09-12] MEDS: HEPARIN NA (PORCINE) 5,000 UNITS/ML 1ML VIAL SQ SCH ×3 (05:43→21:23)
--- NOTE | 2018-09-12 08:33 | PN ---
Teaching Attending Note Name of Resident: Melissa Jordan ATTENDING PHYSICIAN STATEMENT I saw and evaluated the patient. I reviewed the resident's note and discussed the case with the resident. I agree with the resident's findings and plan as documented. SUBJECTIVE: Patient is comfortable with no acute distress. OBJECTIVE: Vital Signs Temperature 97.5 F L 09/12/18 05:51 Pulse Rate 59 L 09/12/18 05:51 Respiratory Rate 18 09/12/18 05:51 Blood Pressure 106/64 09/12/18 05:51 O2 Sat by Pulse Oximetry (%) 96 09/11/18 21:00 GENERAL: Awake, alert, and fully oriented, in no acute distress. HEAD: Normal with no signs of trauma. EYES: Pupils equal, round and reactive to light, extraocular movements intact EARS, NOSE, THROAT: Moist mucous membranes.NECK: Normal range of motion LUNGS: Breath sounds equal, clear to auscultation bilaterally. No wheezes, and no crackles. No accessory muscle use. HEART: Regular rate and rhythm, normal S1 and S2 without murmur, rub or gallop. ABDOMEN: no tenderness today, BS positive MUSCULOSKELETAL: Normal range of motion at all joints. No bony deformities or tenderness. No CVA tenderness today. EXTREMITIES: 2+ pulses, warm, well-perfused. No calf tenderness. No peripheral edema. NEUROLOGICAL: Cranial nerves II-XII intact. Normal speech. PSYCHIATRIC: Cooperative. Good eye contact. Appropriate mood and affect. SKIN: Warm, dry, normal turgor, no rashes or lesions noted, normal capillary refill. : positive for Hooker catether CBCD WBC 3.7 K/mm3 (4.0-10.0) L 09/11/18 06:30 RBC 4.78 M/mm3 (4.00-5.60) 09/11/18 06:30 Hgb 13.8 GM/dL (11.7-16.9) 09/11/18 06:30 Hct 43.1 % (35.4-49) 09/11/18 06:30 MCV 90.2 fl (80-96) 09/11/18 06:30 MCHC 32.1 g/dl (32.0-35.9) 09/11/18 06:30 RDW 14.3 % (11.9-15.9) 09/11/18 06:30 Plt Count 162 K/MM3 (134-434) 09/11/18 06:30 MPV 7.4 fl (7.5-11.1) L 09/11/18 06:30 CMP Sodium 142 mmol/L (136-145) 09/11/18 06:30 Potassium 4.3 mmol/L (3.5-5.1) 09/11/18 06:30 Chloride 108 mmol/L (98-107) H 09/11/18 06:30 Carbon Dioxide 27 mmol/L (21-32) 09/11/18 06:30 Anion Gap 7 MMOL/L (8-16) L 09/11/18 06:30 BUN 12 mg/dL (7-18) 09/11/18 06:30 Creatinine 0.9 mg/dL (0.55-1.3) 09/11/18 06:30 Creat Clearance w eGFR > 60 (>60) 09/11/18 06:30 Random Glucose 82 mg/dL (74-106) 09/11/18 06:30 Calcium 8.2 mg/dL (8.5-10.1) L 09/11/18 06:30 Total Bilirubin 0.6 mg/dL (0.2-1) 09/11/18 06:30 AST 24 U/L (15-37) 09/11/18 06:30 ALT 20 U/L (13-61) 09/11/18 06:30 Alkaline Phosphatase 75 U/L (45-117) 09/11/18 06:30 Total Protein 6.3 g/dl (6.4-8.2) L 09/11/18 06:30 Albumin 3.1 g/dl (3.4-5.0) L 09/11/18 06:30 Current Medications Generic Name Dose Route Start Last Admin Trade Name Freq PRN Reason Stop Dose Admin Heparin Sodium (Porcine) 5,000 unit 09/10/18 22:00 09/12/18 05:43 Heparin - SQ 5,000 unit TID ESEQUIEL Administration Ceftazidime 1 gm/ Dextrose 100 mls @ 200 mls/hr 09/11/18 18:00 09/12/18 02:37 IVPB 200 mls/hr Q8H-IV ESEQUIEL Administration Protocol Tamsulosin HCl 0.4 mg 09/11/18 08:30 09/11/18 09:39 Flomax - PO 0.4 mg DAILY@0830 [facility] Administration Home Medications Medication Instructions Recorded Tamsulosin HCl 0.4 mg PO DAILY 09/10/18 09/10/18 09:41 Urine - Urine Hooker Urine Culture - Preliminary Presumptive Ps Aeruginosa Non Lactose Fermenting Gnb ASSESSMENT AND PLAN: Patient is a 53 y/o male with a history deafness who presents for UTI. #Acute UTI due to Pseudomonas continue Ceftazidime 1 gm (sensitive) , ID, Dr. Mendez on consult. US and renal US report in place. #Mild hydronephrosis ; Dr. Wadsworth for consult. #BPH continue tamsulosin # Hx of Congenital deafness #DVT ppx: heparin TID
[2018-09-12 09:22] LABS: HEMATOCRIT 45.6 % (35.4-49); HEMOGLOBIN 14.8 GM/dL (11.7-16.9); MCH 28.9 pg (25.7-33.7); MCHC 32.5 g/dl (32.0-35.9); MEAN PLT VOLUME 7.1 fl (7.5-11.1); PLATELET COUNT 169 K/MM3 (134-434); RBC 5.12 M/mm3 (4.00-5.60); RDW 14.1 % (11.9-15.9); WHITE BLOOD COUNT 3.2 K/mm3 (4.0-10.0)
[2018-09-12 09:55] LABS: ALBUMIN 3.3 g/dl (3.4-5.0); ALK PHOS 85 U/L (45-117); ANION GAP 8 MMOL/L (8-16); BILIRUBIN,TOTAL 0.5 mg/dL (0.2-1); BLOOD UREA NITROGEN 12 mg/dL (7-18); CALCIUM 8.6 mg/dL (8.5-10.1); CHLORIDE 104 mmol/L (98-107); CO2 28 mmol/L (21-32); CREATININE 0.9 mg/dL (0.55-1.3); GLUCOSE,RANDOM 102 mg/dL (74-106); POTASSIUM 4.1 mmol/L (3.5-5.1); SGOT/AST 22 U/L (15-37); SGPT/ALT 24 U/L (13-61); SODIUM 140 mmol/L (136-145); TOT PROT 6.9 g/dl (6.4-8.2)
[2018-09-12] MEDS: TAMSULOSIN HCL 0.4 MG CAP PO SCH (09:56)
[2018-09-12] MEDS ORDERED: PT OWN MED DRAWER 7, Y5N ONE ×3 (09:59→23:22)
--- NOTE | 2018-09-12 10:42 | PN ---
Physical Exam: SUBJECTIVE: Patient reports having no complaints today. No acute events overnight. OBJECTIVE: Vital Signs Temperature 97.5 F L 09/12/18 05:51 Pulse Rate 59 L 09/12/18 05:51 Respiratory Rate 18 09/12/18 05:51 Blood Pressure 106/64 09/12/18 05:51 O2 Sat by Pulse Oximetry (%) 96 09/11/18 21:00 GENERAL: Awake, alert, and fully oriented, in no acute distress. HEAD: Normal with no signs of trauma. LUNGS: Breath sounds equal, clear to auscultation bilaterally. No wheezes, and no crackles. No accessory muscle use. HEART: Regular rate and rhythm, normal S1 and S2 without murmur, rub or gallop. ABDOMEN:soft, normal bwel sounds LOWER EXTREMITIES: 2+ pulses, warm, well-perfused. No calf tenderness. No peripheral edema. PSYCHIATRIC: Cooperative. Good eye contact. Appropriate mood and affect. SKIN: Warm, dry, normal turgor, no rashes or lesions noted, normal capillary refill CBC, BMP 09/12/18 08:53 09/12/18 08:53 Active Medications Heparin Sodium (Porcine) (Heparin -) 5,000 unit SQ TID [facility] Last Admin: 09/12/18 05:43 Dose: 5,000 unit Ceftazidime 1 gm/ Dextrose 100 mls @ 200 mls/hr IVPB Q8H-IV ESEQUIEL; Protocol Last Admin: 09/12/18 10:01 Dose: 200 mls/hr Tamsulosin HCl (Flomax -) 0.4 mg PO DAILY@0830 [facility] Last Admin: 09/12/18 09:56 Dose: 0.4 mg ASSESSMENT/PLAN: Patient is a 53 y/o male with a history deafness who presents for UTI. #sepsis 2/2 to UTI 2/2 to Pseudomonas - Ceftazidime 1 gm (sensitive) day 3 - f/u ID consult Dr. Mendez - renal/bladder ultrasound: mild left renal hydronephrosis, moderately distended urinary bladder with diffuse thickening - WBC: 3.2 - UA: 3+ LE, 2+ blood WBC: 64, many bacteria - UCX: pseudomonas #BPH - continue tamsulosin #DVT ppx - heparin TID FEN - regular diet - monitor on med surg Dispo: monitor clinically, continue IV abx Visit type - Emergency Visit Emergency Visit: No - New Patient This patient is new to me today: No - Critical Care Critical Care patient: No
[2018-09-13] MEDS: CEFTAZIDIME PENTAHYDRATE 1 GM in DEXTROSE 5%-WATER 100 ML IVPB SCH ×2 (01:14→09:15)
[2018-09-13] MEDS: HEPARIN NA (PORCINE) 5,000 UNITS/ML 1ML VIAL SQ SCH (05:44)
[2018-09-13 07:51] LABS: HEMATOCRIT 45.2 % (35.4-49); HEMOGLOBIN 14.7 GM/dL (11.7-16.9); MCH 29.1 pg (25.7-33.7); MCHC 32.5 g/dl (32.0-35.9); MEAN CELL VOLUME 89.4 fl (80-96); MEAN PLT VOLUME 7.4 fl (7.5-11.1); PLATELET COUNT 164 K/MM3 (134-434); RBC 5.05 M/mm3 (4.00-5.60); WHITE BLOOD COUNT 3.7 K/mm3 (4.0-10.0)
[2018-09-13 08:32] LABS: ANION GAP 7 MMOL/L (8-16); BLOOD UREA NITROGEN 15 mg/dL (7-18); CALCIUM 8.7 mg/dL (8.5-10.1); CHLORIDE 105 mmol/L (98-107); CO2 28 mmol/L (21-32); GLUCOSE,RANDOM 88 mg/dL (74-106); POTASSIUM 4.4 mmol/L (3.5-5.1); SODIUM 140 mmol/L (136-145)
--- NOTE | 2018-09-13 08:55 | PN ---
Teaching Attending Note Name of Resident: Melissa Jordan ATTENDING PHYSICIAN STATEMENT I saw and evaluated the patient. I reviewed the resident's note and discussed the case with the resident. I agree with the resident's findings and plan as documented. SUBJECTIVE: Patient is comfortable, no further pain, or fever or chills. OBJECTIVE: Vital Signs Temperature 97.5 F L 09/13/18 06:00 Pulse Rate 61 09/13/18 06:00 Respiratory Rate 18 09/13/18 06:00 Blood Pressure 98/68 09/13/18 06:00 O2 Sat by Pulse Oximetry (%) 98 09/12/18 21:00 GENERAL: Awake, alert, and fully oriented, in no acute distress. HEAD: Normal with no signs of trauma. EYES: Pupils equal, round and reactive to light, extraocular movements intact EARS, NOSE, THROAT: Moist mucous membranes.NECK: Normal range of motion LUNGS: Breath sounds equal, CTA BL . No wheezes, and no crackles. No accessory muscle use. HEART: Regular rate and rhythm, normal S1 and S2 without murmur, rub or gallop. ABDOMEN: no tenderness today, BS positive MUSCULOSKELETAL: No CVA tenderness EXTREMITIES: 2+ pulses, warm, well-perfused. No calf tenderness. No peripheral edema. NEUROLOGICAL: Cranial nerves II-XII intact. Normal speech. PSYCHIATRIC: Cooperative. Good eye contact. Appropriate mood and affect. SKIN: Warm, dry, normal turgor, no rashes or lesions noted, normal capillary refill. : positive for Hooker catether CBCD WBC 3.7 K/mm3 (4.0-10.0) L 09/13/18 06:15 RBC 5.05 M/mm3 (4.00-5.60) 09/13/18 06:15 Hgb 14.7 GM/dL (11.7-16.9) 09/13/18 06:15 Hct 45.2 % (35.4-49) 09/13/18 06:15 MCV 89.4 fl (80-96) 09/13/18 06:15 MCHC 32.5 g/dl (32.0-35.9) 09/13/18 06:15 RDW 14.0 % (11.9-15.9) 09/13/18 06:15 Plt Count 164 K/MM3 (134-434) 09/13/18 06:15 MPV 7.4 fl (7.5-11.1) L 09/13/18 06:15 CMP Sodium 140 mmol/L (136-145) 09/13/18 06:15 Potassium 4.4 mmol/L (3.5-5.1) 09/13/18 06:15 Chloride 105 mmol/L (98-107) 09/13/18 06:15 Carbon Dioxide 28 mmol/L (21-32) 09/13/18 06:15 Anion Gap 7 MMOL/L (8-16) L 09/13/18 06:15 BUN 15 mg/dL (7-18) 09/13/18 06:15 Creatinine 1.0 mg/dL (0.55-1.3) 09/13/18 06:15 Creat Clearance w eGFR > 60 (>60) 09/13/18 06:15 Random Glucose 88 mg/dL (74-106) 09/13/18 06:15 Calcium 8.7 mg/dL (8.5-10.1) 09/13/18 06:15 Total Bilirubin 0.5 mg/dL (0.2-1) 09/12/18 08:53 AST 22 U/L (15-37) 09/12/18 08:53 ALT 24 U/L (13-61) 09/12/18 08:53 Alkaline Phosphatase 85 U/L (45-117) 09/12/18 08:53 Total Protein 6.9 g/dl (6.4-8.2) 09/12/18 08:53 Albumin 3.3 g/dl (3.4-5.0) L 09/12/18 08:53 Current Medications Generic Name Dose Route Start Last Admin Trade Name Freq PRN Reason Stop Dose Admin Heparin Sodium (Porcine) 5,000 unit 09/10/18 22:00 09/13/18 05:44 Heparin - SQ 5,000 unit TID ESEQUIEL Administration Ceftazidime 1 gm/ Dextrose 100 mls @ 200 mls/hr 09/11/18 18:00 09/13/18 01:14 IVPB 200 mls/hr Q8H-IV ESEQUIEL Administration Protocol Tamsulosin HCl 0.4 mg 09/11/18 08:30 09/12/18 09:56 Flomax - PO 0.4 mg DAILY@0830 ESEQUIEL Administration Home Medications Medication Instructions Recorded Tamsulosin HCl 0.4 mg PO DAILY 09/10/18 Urine Test Results Urine Color Straw 09/10/18 11:38 Urine Appearance Slcloudy 09/10/18 11:38 Urine pH 6.0 (5.0-8.0) 09/10/18 11:38 Ur Specific [place] 1.002 (1.010-1.035) L 09/10/18 11:38 Urine Protein Negative (NEGATIVE) 09/10/18 11:38 Urine Glucose (UA) Negative (NEGATIVE) 09/10/18 11:38 Urine Ketones Negative (NEGATIVE) 09/10/18 11:38 Urine Blood 2+ (NEGATIVE) H 09/10/18 11:38 Urine Nitrite Negative (NEGATIVE) 09/10/18 11:38 Urine Bilirubin Negative (<2.0 mg/dL) 09/10/18 11:38 Ur Leukocyte Esterase 3+ (NEGATIVE) H 09/10/18 11:38 Urine Bacteria Many /hpf (NONE SEEN) 09/10/18 11:38 Microbiology 09/10/18 09:41 Urine - Urine Hooker Urine Culture - Final Pseudomonas Aeruginosa Pseudomonas Aeruginosa#2 ASSESSMENT AND PLAN: Patient is a 53 y/o male with a history deafness who presents for UTI. #Acute UTI due to Pseudomonas sensitivity is back , as per ID to continue with Cefepime 2gm q12h x 7 days. s/p Ceftazidime 1 gm (sensitive) ,US and renal US report in place. will do PICC line and either in rehab. or home infusion as per recommendations of director social service/ [employer] and will check with the patient. #Mild hydronephrosis on Hooker ; Dr. Wadsworth , will do procedure as an outpatient. # Urinary retention on Hooker will continue for now as per and patient to see him as an outpatient. #BPH continue tamsulosin # Hx of Congenital deafness #DVT ppx: heparin TID
[2018-09-13] MEDS: SODIUM CHLORIDE 1,000 ML IV SCH (09:10)
[2018-09-13] MEDS: cefTAZidime PENTAHYDRATE 1 GM/50ML PRE-DOCKED (RESTRICTED TO ID) IVPB SCH (09:12)
[2018-09-13] MEDS: TAMSULOSIN HCL 0.4 MG CAP PO SCH (09:15)
[2018-09-13] MEDS ORDERED: PICC LINE 8 ML FLUSH PROTOCOL IVPUSH PRN (14:02)
--- NOTE | 2018-09-13 14:35 | PN ---
Physical Exam: SUBJECTIVE: Patient reports having no complaints today. No acute events overnight. Planning to get PICC line tom[facility]orw for jail IV antibiotics to treat UTI. OBJECTIVE: Vital Signs Temperature 97.5 F L 09/13/18 06:00 Pulse Rate 61 09/13/18 06:00 Respiratory Rate 18 09/13/18 06:00 Blood Pressure 98/68 09/13/18 06:00 O2 Sat by Pulse Oximetry (%) 98 09/12/18 21:00 GENERAL: Awake, alert, and fully oriented, in no acute distress. HEAD: Normal with no signs of trauma. LUNGS: Breath sounds equal, clear to auscultation bilaterally. No wheezes, and no crackles. No accessory muscle use. HEART: Regular rate and rhythm, normal S1 and S2 without murmur, rub or gallop. ABDOMEN:soft, normal bwel sounds LOWER EXTREMITIES: 2+ pulses, warm, well-perfused. No calf tenderness. No peripheral edema. PSYCHIATRIC: Cooperative. Good eye contact. Appropriate mood and affect. SKIN: Warm, dry, normal turgor, no rashes or lesions noted, normal capillary refill CBC, BMP 09/13/18 06:15 09/13/18 06:15 Active Medications Heparin Sodium (Porcine) (Heparin -) 5,000 unit SQ TID [facility] Last Admin: 09/13/18 05:44 Dose: 5,000 unit IV Flush (Picc Line Flush) 8 ml IVPUSH PRN PRN PRN Reason: Protocol Ceftazidime 1 gm/ Dextrose 100 mls @ 200 mls/hr IVPB Q8H-IV ESEQUIEL; Protocol Last Admin: 09/13/18 09:15 Dose: 200 mls/hr Tamsulosin HCl (Flomax -) 0.4 mg PO DAILY@0830 [facility] Last Admin: 09/13/18 09:15 Dose: 0.4 mg ASSESSMENT/PLAN: Patient is a 53 y/o male with a history deafness who presents for UTI. #sepsis 2/2 to UTI 2/2 to Pseudomonas - Ceftazidime 1 gm (sensitive) day 4 - change to cefapine BID, patient to be DC of cefapine - f/u ID consult Dr. Mendez - renal/bladder ultrasound: mild left renal hydronephrosis, moderately distended urinary bladder with diffuse thickening - UCX: pseudomonas #BPH - continue tamsulosin #DVT ppx - heparin TID FEN - regular diet - monitor on med surg Dispo: PICC line tomorrow, send home with IV abx prescription Visit type - Emergency Visit Emergency Visit: No - New Patient This patient is new to me today: No - Critical Care Critical Care patient: No
--- NOTE | 2018-09-13 15:04 | PN ---
Progress Note, Physician History of Present Illness: oob in chair no complaints afebrile Urine c/s Pseudomonas - Current Medication List Current Medications: Active Medications Heparin Sodium (Porcine) (Heparin -) 5,000 unit SQ TID [facility] Last Admin: 09/13/18 05:44 Dose: 5,000 unit IV Flush (Picc Line Flush) 8 ml IVPUSH PRN PRN PRN Reason: Protocol Ceftazidime 1 gm/ Dextrose 100 mls @ 200 mls/hr IVPB Q8H-IV ESEQUIEL; Protocol Last Admin: 09/13/18 09:15 Dose: 200 mls/hr Tamsulosin HCl (Flomax -) 0.4 mg PO DAILY@0830 [facility] Last Admin: 09/13/18 09:15 Dose: 0.4 mg - Objective Vital Signs: Vital Signs Temperature 98.2 F 09/13/18 10:00 Pulse Rate 91 H 09/13/18 10:00 Respiratory Rate 18 09/13/18 10:00 Blood Pressure 91/66 09/13/18 10:00 O2 Sat by Pulse Oximetry (%) 98 09/13/18 09:00 Constitutional: Yes: No Distress Cardiovascular: Yes: Regular Rate and Rhythm, S1, S2 Respiratory: Yes: CTA Bilaterally Gastrointestinal: Yes: Normal Bowel Sounds, Soft. No: Tenderness Genitourinary: Yes: Other (fabian in place) Edema: No Labs: CBC, BMP 09/13/18 06:15 09/13/18 06:15 Assessment/Plan Pseudomonas UTI Urinary retention Leukopenia Additional instrumentation planned Advise PICC for outpatient IV antibiotics cefepime 2gm IVPB q12h x 7d
--- NOTE | 2018-09-13 18:39 | CONSULT ---
Consult - text type - Consultation Consultation Note: CC: uti with resistant pseudomonas with urinary retentjon HPI: Patient with history of bph who failed multiple trials of voiding on flomax 0.8 mg daily. Patient developed a resistant uti and is admitted for antibiotic in order to schedule a TURP. Patient denies any flank pain or nausea and vomiting PE afeb abd-soft, non-tender; no CVAT genitalia-fabian draining clear urine labs reviewed with normal renal function noted imp resistant uti bph with retention plan antibiotics as per ID
[2018-09-13] MEDS: CEFEPIME 2 GM in DEXTROSE 5%-WATER 100 ML IVPB SCH (21:51)
--- NOTE | 2018-09-14 08:35 | PN ---
Teaching Attending Note Name of Resident: Melissa Jordan ATTENDING PHYSICIAN STATEMENT I saw and evaluated the patient. I reviewed the resident's note and discussed the case with the resident. I agree with the resident's findings and plan as documented. SUBJECTIVE: Patient is doing better, no fever or chills, no shortness of breath. Patient lives with his at home. OBJECTIVE: Vital Signs Temperature 97.5 F L 09/14/18 07:02 Pulse Rate 64 09/14/18 07:02 Respiratory Rate 20 09/14/18 07:02 Blood Pressure 102/65 09/14/18 07:02 O2 Sat by Pulse Oximetry (%) 98 09/13/18 21:00 GENERAL: Awake, alert, and fully oriented, in no acute distress. HEAD: Normal with no signs of trauma. EYES: Pupils equal, round and reactive to light, extraocular movements intact EARS, NOSE, THROAT: Moist mucous membranes.NECK: Normal range of motion LUNGS: Breath sounds equal, CTA BL . No wheezes, and no crackles. No accessory muscle use. HEART: Regular rate and rhythm, normal S1 and S2 without murmur, rub or gallop. ABDOMEN: soft, NT,ND, no tenderness today, BS positive MUSCULOSKELETAL: No CVA tenderness EXTREMITIES: 2+ pulses, warm, well-perfused. No calf tenderness. No peripheral edema. NEUROLOGICAL: Cranial nerves II-XII intact. Normal speech. PSYCHIATRIC: Cooperative. Good eye contact. normal affect. SKIN: Warm, dry, normal turgor, no rashes or lesions noted, normal capillary refill. : positive for Hooker catether CBCD WBC 3.7 K/mm3 (4.0-10.0) L 09/13/18 06:15 RBC 5.05 M/mm3 (4.00-5.60) 09/13/18 06:15 Hgb 14.7 GM/dL (11.7-16.9) 09/13/18 06:15 Hct 45.2 % (35.4-49) 09/13/18 06:15 MCV 89.4 fl (80-96) 09/13/18 06:15 MCHC 32.5 g/dl (32.0-35.9) 09/13/18 06:15 RDW 14.0 % (11.9-15.9) 09/13/18 06:15 Plt Count 164 K/MM3 (134-434) 09/13/18 06:15 MPV 7.4 fl (7.5-11.1) L 09/13/18 06:15 CMP Sodium 140 mmol/L (136-145) 09/13/18 06:15 Potassium 4.4 mmol/L (3.5-5.1) 09/13/18 06:15 Chloride 105 mmol/L (98-107) 09/13/18 06:15 Carbon Dioxide 28 mmol/L (21-32) 09/13/18 06:15 Anion Gap 7 MMOL/L (8-16) L 09/13/18 06:15 BUN 15 mg/dL (7-18) 09/13/18 06:15 Creatinine 1.0 mg/dL (0.55-1.3) 09/13/18 06:15 Creat Clearance w eGFR > 60 (>60) 09/13/18 06:15 Random Glucose 88 mg/dL (74-106) 09/13/18 06:15 Calcium 8.7 mg/dL (8.5-10.1) 09/13/18 06:15 Total Bilirubin 0.5 mg/dL (0.2-1) 09/12/18 08:53 AST 22 U/L (15-37) 09/12/18 08:53 ALT 24 U/L (13-61) 09/12/18 08:53 Alkaline Phosphatase 85 U/L (45-117) 09/12/18 08:53 Total Protein 6.9 g/dl (6.4-8.2) 09/12/18 08:53 Albumin 3.3 g/dl (3.4-5.0) L 09/12/18 08:53 Current Medications Generic Name Dose Route Start Last Admin Trade Name Freq PRN Reason Stop Dose Admin Heparin Sodium (Porcine) 5,000 unit 09/10/18 22:00 09/13/18 05:44 Heparin - SQ 5,000 unit TID ESEQUIEL Administration IV Flush 8 ml 09/13/18 14:02 Picc Line Flush IVPUSH PRN PRN Protocol Cefepime HCl 2 gm/ Dextrose 100 mls @ 200 mls/hr 09/13/18 22:00 09/13/18 21: 51 IVPB 200 mls/hr BID ESEQUIEL Administration Protocol Tamsulosin HCl 0.4 mg 09/11/18 08:30 09/13/18 09:15 Flomax - PO 0.4 mg DAILY@0830 [facility] Administration Home Medications Medication Instructions Recorded Tamsulosin HCl 0.4 mg PO DAILY 09/10/18 09/10/18 09:41 Urine - Urine Hooker Urine Culture - Final Pseudomonas Aeruginosa Pseudomonas Aeruginosa#2 ASSESSMENT AND PLAN: Patient is a 53 y/o male with a history deafness who presents for UTI. #Acute UTI due to Pseudomonas sensitivity is back , as per ID to continue with Cefepime 2gm q12h x 7 days. s/p Ceftazidime 1 gm (sensitive) ,US and renal US report reviewed. Patient has the PICC line in place , going home with home infusion. Rx will be given by Dr. Mendez . follow weekly labs. #Mild hydronephrosis on Hooker ; Dr. Wadsworth , will do procedure as an outpatient , follow with Ananth as an outpatient. # Urinary retention on Hooker will continue for now as per and patient to see him as an outpatient. #BPH continue tamsulosin # Hx of Congenital deafness discharge patient home
[2018-09-14] MEDS: TAMSULOSIN HCL 0.4 MG CAP PO SCH (09:00)
[2018-09-14] MEDS ORDERED: PT OWN MED DRAWER 7, Y5N ONE (09:34)
[2018-09-14] MEDS: CEFEPIME 2 GM in DEXTROSE 5%-WATER 100 ML IVPB SCH (10:58)
--- NOTE | 2018-09-14 12:26 | DS ---
Physical Exam: SUBJECTIVE: Patient denies having any pain today. Received PICC line this morning and can go home today. OBJECTIVE: Vital Signs Temperature 97.5 F L 09/14/18 07:02 Pulse Rate 64 09/14/18 07:02 Respiratory Rate 20 09/14/18 07:02 Blood Pressure 102/65 09/14/18 07:02 O2 Sat by Pulse Oximetry (%) 98 09/13/18 21:00 PHYSICAL EXAM GENERAL: Awake, alert, and fully oriented, in no acute distress. HEAD: Normal with no signs of trauma. LUNGS: Breath sounds equal, clear to auscultation bilaterally. No wheezes, and no crackles. No accessory muscle use. HEART: Regular rate and rhythm, normal S1 and S2 without murmur, rub or gallop. ABDOMEN:soft, normal bwel sounds LOWER EXTREMITIES: 2+ pulses, warm, well-perfused. No calf tenderness. No peripheral edema. PSYCHIATRIC: Cooperative. Good eye contact. Appropriate mood and affect. SKIN: Warm, dry, normal turgor, no rashes or lesions noted, normal capillary refill HOSPITAL COURSE: Date of Admission:09/10/18 Patient admitted for pseudomonas UTI. Patient received IV antibiotics as treatment. Patient will complete antibiotic course as an outpatient through PICC line. Pseudomonas culture sensitive to Cefapine. patient presented with fabian. Spoke with patients urologist, Dr. Lawton who would like fabian to remain in until he can schedule him for a procedure. Patient DC on fabian and vitals stable. Urine culture: Pseudomonas renal/bladder ultrasound: mild left renal hydronephrosis, moderately distended urinary bladder with diffuse thickening Date of Discharge: 09/14/18 Minutes to complete discharge: 35 Discharge Summary Reason For Visit: PSEUDOMONAS URINARY TRACT INFECTION Current Active Problems Pseudomonas urinary tract infection (Acute) Condition: Improved - Instructions Diet, Activity, Other Instructions: You were admitted to the hospital for a urinary infection. We are treating this infection with IV antibiotics. You need to complete 7 more days of antibiotics to complete treatment of the infection. You will be receiving the antibiotic Cefepime 2gm twice a day at 8 am and 8 pm. You will receive this antibiotic through an IV line (PICC line) in your arm. Care for the PICC line is as follows: -Use good hand hygiene; wash your hands before use, dont touch the PICC line or dressing unless you need to, -Keep the PICC dry; dont take baths or go swimming, take a sponge bath to avoid the PICC line from getting wet -Avoid damage; dont use sharp or pointy objects around the catheter, try not to let clothing pull on the catheter -Avoid lowering your chest below your waist You will make a follow up appointment with Dr. Lawton to have the procedure for your prostate. Please continue to take your home medications as prescribed. Follow up with your primary care physician within one week. You should return to the Emergency Department if you have chest pain, nausea, shortness of breath, or blood in your urine. Referrals: Eladio Lawton MD [Staff Physician] - Leslie Zaidi MD [Primary Care Provider] - Disposition: HOME - Home Medications Comprehensive Discharge Medication List: Ambulatory Orders Tamsulosin HCl 0.4 mg PO DAILY 09/10/18 Cefepime in Iso-Osm Dextrose [Cefepime 2 gm Injection] 2 gm IV Q12H #13 [email or web address] 09/14/18 This patient is new to me today: No Emergency Visit: No Critical Care patient: No - Discharge Referral Referred to [facility] No
[2018-09-14 14:01] VITALS: BP 109/73; PULSE 85; TEMP 98.8
[2018-09-14] MEDS: HEPARIN NA (PORCINE) 5,000 UNITS/ML 1ML VIAL SQ SCH (14:38)
== END 2018-09-14 14:36 | disposition home or self-care (01) | DRG 466 ==
LOC: JER 09:08 → JERBED 13:46 → J8W 18:45
PROVIDERS: ADMIT Internal Medicine; ATTEND Internal Medicine
PROC: 02HV33Z Insertion of Infusion Device into Superior Vena Cava, Percutaneous Approach (ICD-10-PCS; principal; 2018-09-14)
PROC: B518ZZA Fluoroscopy of Superior Vena Cava, Guidance (ICD-10-PCS; 2018-09-14)
DX: T83.518A Infection and inflammatory reaction due to other urinary catheter, initial encounter (principal); Y84.8 Other medical procedures as the cause of abnormal reaction of the patient, or of later complication, without mention of misadventure at the time of the procedure; N13.6 Pyonephrosis; B96.5 Pseudomonas (aeruginosa) (mallei) (pseudomallei) as the cause of diseases classified elsewhere; Z16.30 Resistance to unspecified antimicrobial drugs; N40.0 Benign prostatic hyperplasia without lower urinary tract symptoms; H90.3 Sensorineural hearing loss, bilateral; D72.819 Decreased white blood cell count, unspecified; R33.9 Retention of urine, unspecified
CPT/HCPCS: 36415; 36569; 76775-TC; 76856-TC; 80048; 80053; 81003; 81015; 83735; 84100; 85025; 85027; 85730; 87086; 87186; 99283-25; J1644; J7030

== ENCOUNTER 2018-09-15 09:50 | Inpatient (IN) | payer OTHER ==
[2018-09-15 10:01] VITALS: BMI 20.7
--- NOTE | 2018-09-15 10:56 | PDOC ---
History of Present Illness <Cheryl Jean - Last Filed: 09/15/18 13:53> - History of Present Illness Initial Comments: 09/15/18 11:19 The patient is a 53 year old male with a past medical history of deafness, BPH and a PICC line placed yesterday by the IR team for pseudomonas UTI complaining of right arm numbness and cold sensation since 9PM last night. Pt denies weakness. Reports color to RUE is slightly different. Reports symptoms are only present distal to the PICC line. Denies headache. Patient denies any other symptoms or CP, SOB, N/V/D, fevers, abd pain, dizziness, urinary sxs. <Ulises Kaplan - Last Filed: 09/15/18 14:23> - General Chief Complaint: Head/Neck problem Stated Complaint: RT SIDE NUMBNESS Time Seen by Provider: 09/15/18 09:58 Past History <Cheryl Jean - Last Filed: 09/15/18 13:53> - Past Medical History Anemia: No Asthma: No Cancer: No Cardiac Disorders: No CVA: No COPD: No CHF: No Dementia: No Diabetes: No GI Disorders: No Disorders: No HTN: No Hypercholesterolemia: No Liver Disease: No Seizures: No Thyroid Disease: No Other medical history: picc line, deaf and mute, reads lips and writes. - Surgical History Abdominal Surgery: No Appendectomy: No Cardiac Surgery: No Cholecystectomy: No Lung Surgery: No Neurologic Surgery: No Orthopedic Surgery: No - Immunization History Immunization Up to Date: Yes - Suicide/Smoking/Psychosocial Hx Smoking History: Never smoked Have you smoked in the past 12 months: No If you are a former smoker, when did you quit?: 30 yrs ago Information on smoking cessation initiated: No Hx Alcohol Use: No Drug/Substance Use Hx: No Substance Use Type: None Hx Substance Use Treatment: No <Ulises Kaplan - Last Filed: 09/15/18 14:23> - Past Medical History Allergies/Adverse Reactions: Allergies Allergy/AdvReac Type Severity Reaction Status Date / Time No Known Allergies Allergy Verified 09/15/18 10:01 Home Medications: Ambulatory Orders Cefepime in Iso-Osm Dextrose [Cefepime 2 gm Injection] 2 gm IV Q12H #13 [email or web address] 09/14/18 Review of Systems - Review of Systems Comments:: 09/15/18 11:22 "GENERAL/CONSTITUTIONAL: No fever or chills. No weakness. HEAD, EYES, EARS, NOSE AND THROAT: No change in vision. No ear pain or discharge. No sore throat. GASTROINTESTINAL: No nausea, vomiting, diarrhea or constipation. GENITOURINARY: No dysuria, frequency, or change in urination. CARDIOVASCULAR: No chest pain or shortness of breath. RESPIRATORY: No cough, wheezing, or hemoptysis. MUSCULOSKELETAL: No joint or muscle swelling or pain. No neck or back pain. SKIN: No rash NEUROLOGIC: No headache, vertigo, loss of consciousness, or change in strength. (+) Right arm numbness and cold sensation. ENDOCRINE: No increased thirst. No abnormal weight change. HEMATOLOGIC/LYMPHATIC: No anemia, easy bleeding, or history of blood clots. ALLERGIC/IMMUNOLOGIC: No hives or skin allergy." <Ulises Kaplan - Last Filed: 09/15/18 14:23> *Physical Exam - Vital Signs Last Vital Signs Temp Pulse Resp BP Pulse Ox 97.9 F 91 H 16 97/75 100 09/15/18 09:51 09/15/18 09:51 09/15/18 09:51 09/15/18 09:51 09/15/18 09:51 <Cheryl Jean - Last Filed: 09/15/18 13:53> - Vital Signs Last Vital Signs Temp Pulse Resp BP Pulse Ox 97.9 F 91 H 16 97/75 100 09/15/18 09:51 09/15/18 09:51 09/15/18 09:51 09/15/18 09:51 09/15/18 09:51 - Physical Exam Comments: 09/15/18 11:22 GENERAL: Awake, alert, and fully oriented, in no acute distress HEAD: No signs of trauma EYES: PERRLA, EOMI, sclera anicteric, conjunctiva clear ENT: Auricles normal inspection, hearing grossly normal, nares patent, oropharynx clear without exudates. Moist mucosa NECK: Normal ROM, supple, no lymphadenopathy, JVD, or masses LUNGS: Breath sounds equal, clear to auscultation bilaterally. No wheezes, and no crackles HEART: Regular rate and rhythm, normal S1 and S2, no murmurs, rubs or gallops ABDOMEN: Soft, nontender, normoactive bowel sounds. No guarding, no rebound. No masses EXTREMITIES: RUE with normal range of motion, no edema. 2+ peripheral pulses. No clubbing or cyanosis. No cords, erythema, or tenderness. PICC line in place, clean, dry, intact, non tender with no erythema. BACK: No midline spinal tenderness in cervical/thoracic/lumbar region NEUROLOGICAL: Cranial nerves intact, negative pronator drift, 5/5 strength in all 4 extremities, normal sensation to light touch in all 4 extremities, normal cerebellar exam, normal gait SKIN: R hand slightly more erythematous than L hand. Otherwise, warm, Dry, normal turgor, no rashes or lesions noted. <Ulises Kaplan - Last Filed: 09/15/18 14:23> Moderate Sedation - Procedure Monitoring Vital Signs: Procedure Monitoring Vital Signs Temperature 97.9 F 09/15/18 09:51 Pulse Rate 91 H 09/15/18 09:51 Respiratory Rate 16 09/15/18 09:51 Blood Pressure 97/75 09/15/18 09:51 O2 Sat by Pulse Oximetry (%) 100 09/15/18 09:51 <Cheryl Jean - Last Filed: 09/15/18 13:53> - Procedure Monitoring Vital Signs: Procedure Monitoring Vital Signs Temperature 97.9 F 09/15/18 09:51 Pulse Rate 91 H 09/15/18 09:51 Respiratory Rate 16 09/15/18 09:51 Blood Pressure 97/75 09/15/18 09:51 O2 Sat by Pulse Oximetry (%) 100 09/15/18 09:51 <Ulises Kaplan - Last Filed: 09/15/18 14:23> ED Treatment Course - LABORATORY CBC & Chemistry Diagram: 09/15/18 10:55 09/15/18 10:55 - ADDITIONAL ORDERS Additional order review: Laboratory Results 09/15/18 10:55 Sodium 138 Potassium 4.6 Chloride 103 Carbon Dioxide 27 Anion Gap 8 BUN 18 Creatinine 0.9 Creat Clearance w eGFR > 60 Random Glucose 86 Calcium 8.9 Total Bilirubin 0.5 AST 118 H ALT 114 H Alkaline Phosphatase 93 Total Protein 7.6 Albumin 3.9 09/15/18 10:55 RBC 4.92 MCV 88.9 MCHC 34.1 RDW 14.4 MPV 7.6 Neutrophils % 62.3 D Lymphocytes % 26.4 D Monocytes % 9.3 Eosinophils % 1.3 Basophils % 0.7 - Medications Given in the ED: ED Medications Discontinued Medications Generic Name Dose Route Start Last Admin Trade Name Benitoq PRN Reason Stop Dose Admin Cefepime HCl 2 gm in 50 mls @ 100 mls/hr 09/15/18 11:12 09/15/18 13:07 Maxipime 2gm Ivpb (Premix) IVPB 09/15/18 11:41 100 mls/hr ONCE ONE Administration Protocol <Cheryl Jean - Last Filed: 09/15/18 13:53> - LABORATORY CBC & Chemistry Diagram: 09/15/18 10:55 09/15/18 10:55 - RADIOLOGY Radiology Studies Ordered: Category Date Time Status DUPLEX ART. UPPER COMPL US [US] Stat Ultrasound 09/15/18 10:33 Ordered DUPLEX VASCUL US-1 ARM [US] Stat Ultrasound 09/15/18 10:33 Ordered <Ulises Kaplan - Last Filed: 09/15/18 14:23> Medical Decision Making - Medical Decision Making 09/15/18 11:00 ER nurse discussed the case with an IR nurse. 09/15/18 1:40 Paged IR; pending call back. 09/15/18 1:50 Case d/w Dr. Ramos, IR. <Cheryl Jean - Last Filed: 09/15/18 13:53> - Medical Decision Making 09/15/18 11:14 53yo M presents to the ED with RUE cold/numb sensation since 9pm, distal to his PICC line. Vitals unremarkable. RUE warm, with normal strength and sensation equal to LUE. No erythema or ttp around the PICC. Right hand slightly more erythematous? Line draws back and flushes well without pain. Plan to get arterial and venous US of RUE as well as IR evaluation of PICC, reassess 09/15/18 14:19 +brachial vein thrombus at level of PICC Discussed with Dr. Peterson, recommends not using PICC line. States since superficial vein, will not need AC Case discussed with ELANA Britton, pt accepted for admission to Dr. Olivarez Case discussed in detail with admitting physician including history, physical exam and ancillary studies. Admitting physician has assumed care for the patient, will follow all pending diagnostics and will complete the evaluation and treatment. <Ulises Kaplan - Last Filed: 09/15/18 14:23> *DC/Admit/Observation/Transfer <Cheryl Jean - Last Filed: 09/15/18 13:53> - Discharge Dispostion Decision to Admit order: Yes - Attestations Physician Attestion: 09/15/18 14:23 I, Dr. Ulises Kaplan MD, attest that this document has been prepared under my direction and personally reviewed by me in its entirety. I further attest, that it accurately reflects all work, treatment, procedures and medical decision -making performed by me. <Ulises Kaplan - Last Filed: 09/15/18 14:23> Diagnosis at time of Disposition: Pseudomonas urinary tract infection, Acute brachial vein thrombosis, Right arm numbness, Arm pain - Discharge Dispostion Condition at time of disposition: Stable - Referrals Referrals: Leslie Zaidi MD [Primary Care Provider] - - Patient Instructions - Post Discharge Activity
[2018-09-15] MEDS ORDERED: CEFEPIME HCL/D5W 2 GM/50 ML BAG IVPB ONE (11:12)
[2018-09-15 11:32] LABS: BASO % 0.7 % (0-2.0); EOS % 1.3 % (0-4.5); HEMATOCRIT 43.7 % (35.4-49); HEMOGLOBIN 14.9 GM/dL (11.7-16.9); LYMPH % 26.4 % (8-40); MCH 30.3 pg (25.7-33.7); MCHC 34.1 g/dl (32.0-35.9); MEAN CELL VOLUME 88.9 fl (80-96); MEAN PLT VOLUME 7.6 fl (7.5-11.1); MONO % 9.3 % (3.8-10.2); NEUT % 62.3 % (42.8-82.8); PLATELET COUNT 171 K/MM3 (134-434); RBC 4.92 M/mm3 (4.00-5.60); RDW 14.4 % (11.9-15.9); WHITE BLOOD COUNT 3.8 K/mm3 (4.0-10.0)
[2018-09-15 12:09] LABS: ALBUMIN 3.9 g/dl (3.4-5.0); ALK PHOS 93 U/L (45-117); ANION GAP 8 MMOL/L (8-16); BILIRUBIN,TOTAL 0.5 mg/dL (0.2-1); BLOOD UREA NITROGEN 18 mg/dL (7-18); CALCIUM 8.9 mg/dL (8.5-10.1); CHLORIDE 103 mmol/L (98-107); CO2 27 mmol/L (21-32); CREATININE 0.9 mg/dL (0.55-1.3); GLUCOSE,RANDOM 86 mg/dL (74-106); POTASSIUM 4.6 mmol/L (3.5-5.1); SGOT/AST 118 U/L (15-37); SGPT/ALT 114 U/L (13-61); SODIUM 138 mmol/L (136-145); TOT PROT 7.6 g/dl (6.4-8.2)
[2018-09-15] MEDS ORDERED: CEFEPIME 2 GM/100 ML BAG IVPB ONE ×2 (13:06→15:09)
[2018-09-15] MEDS ORDERED: [UNRECOGNIZED DRUG - OTHER] IV SCH (15:00)
[2018-09-15] MEDS ORDERED: CEFEPIME IN ISO OSM DEXTROSE IV SCH (15:00)
--- NOTE | 2018-09-15 15:02 | HP ---
CHIEF COMPLAINT: Right arm pain and tingling PCP: Dr. Marin Urologist: Dr. 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 He had a PICC line placed yesterday for IV Cefipime for pseudamonas UTI upon d/c of [facility]. He had been admitted to [facility] on 09/10 and discharged 09/14. Denies fevers, syncope, seizures, hemoptysis, SOB, chest pain, palpitations n/v/d. Upon admission to the ED, patient was hypotensive 97/75, slightly tachycardic HR 91. Doppler showed right brachial vein thrombus. Labs notable for elevated AST/ALT: 118/114. Recent Travel: No PAST MEDICAL HISTORY: Deafness (secondary to hydrocephaly since age 1) BPH PAST SURGICAL HISTORY: None Social History: Deaf, can read lips, lives at home with his fianceNicole and his brother Daniel Smoking: Former, quit 30 years ago Alcohol: Denies Drugs: Denies Allergies No Known Allergies Allergy (Verified 09/15/18 10:01) HOME MEDICATIONS: Home Medications Medication Instructions Recorded Cefepime in Iso-Osm Dextrose 2 gm IV Q12H #13 [email or web address] 09/14/18 [Cefepime 2 gm Injection] REVIEW OF SYSTEMS CONSTITUTIONAL: Absent: fever, chills, diaphoresis, generalized weakness, malaise, loss of appetite, weight change HEENT: Absent: rhinorrhea, nasal congestion, throat pain, throat swelling, difficulty swallowing, mouth swelling, ear pain, eye pain, visual changes CARDIOVASCULAR: Absent: chest pain, syncope, palpitations, irregular heart rate, lightheadedness , peripheral edema RESPIRATORY: Absent: cough, shortness of breath, dyspnea with exertion, orthopnea, wheezing, stridor, hemoptysis GASTROINTESTINAL: Absent: abdominal pain, abdominal distension, nausea, vomiting, diarrhea, constipation, melena, hematochezia GENITOURINARY: Absent: dysuria, frequency, urgency, hesitancy, hematuria, flank pain, genital pain MUSCULOSKELETAL: (+) R arm numbness and coldness Absent: myalgia, arthralgia, joint swelling, back pain, neck pain SKIN: Absent: rash, itching, pallor HEMATOLOGIC/IMMUNOLOGIC: Absent: easy bleeding, easy bruising, lymphadenopathy, frequent infections ENDOCRINE: Absent: unexplained weight gain, unexplained weight loss, heat intolerance, cold intolerance NEUROLOGIC: Absent: headache, focal weakness or paresthesias, dizziness, unsteady gait, seizure, mental status changes, bladder or bowel incontinence PSYCHIATRIC: Absent: anxiety, depression, suicidal or homicidal ideation, hallucinations. PHYSICAL EXAMINATION Vital Signs - 24 hr 09/15/18 09/15/18 09:51 14:47 Temperature 97.9 F 97.8 F Pulse Rate 91 H Pulse Rate [ 87 Right] Respiratory 16 18 Rate Blood Pressure 97/75 Blood Pressure 99/60 [Left Arm] O2 Sat by Pulse 100 97 Oximetry (%) GENERAL: Thin, awake, alert, and fully oriented, in no acute distress. HEAD: Normal with no signs of trauma. EYES: Arcus senilis b/l, pupils equal, round and reactive to light, extraocular movements intact, sclera anicteric, conjunctiva clear. No lid lag. EARS, NOSE, THROAT: Norman patent, oropharynx clear without exudates. Moist mucous membranes. NECK: Normal range of motion, supple without lymphadenopathy, JVD, or masses. LUNGS: Breath sounds equal, clear to auscultation bilaterally. No wheezes, and no crackles. No accessory muscle use. HEART: Regular rate and rhythm, normal S1 and S2 without murmur, rub or gallop. ABDOMEN: Soft, nontender, not distended, normoactive bowel sounds, no guarding, no rebound, no masses. No hepatomegaly or splenomegaly. MUSCULOSKELETAL: Normal range of motion at all joints. No bony deformities or tenderness. No CVA tenderness. UPPER EXTREMITIES: +PICC, no redness or swelling around site, No cyanosis. No clubbing. No peripheral edema. LOWER EXTREMITIES: 2+ pulses, warm, well-perfused. No calf tenderness. No peripheral edema. NEUROLOGICAL: No facial droop, deaf PSYCHIATRIC: Cooperative. Good eye contact. Appropriate mood and affect. SKIN: Warm, dry, normal turgor, no rashes or lesions noted, normal capillary refill. 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 He had a PICC line placed yesterday for IV Cefipime for pseudamonas UTI. Doppler showed right brachial vein thrombus. Patient admitted to finish IV antibiotics through peripheral line Acute brachial vein thrombosis - Awaiting clarification from Dr. Yi, left , of RUE Doppler on whether thrombus is in mid basilic vein near the pic, OR - In mid brachial vein where picc is placed as it says under "impressions of RUE shows +brachial vein thrombus at level of PICC - IR Dr. Hidalgo consulted - Recommends not using PICC line - Since superficial vein, will not need AC - D/c PICC line Transaminitis - AST/ALT: 118/114 - Possibly SE from Cefipime - Monitor CMP Pseudamonas UTI - Cefipime 2G IV q12h x 5 days - Administer through peripheral line BPH - Tamsulosin 0.4 mg PO qday FEN - PO intake adequate - Replete as needed - Regular diet Prophylaxis - SQ heparin Disp: FULL CODE Visit type - Emergency Visit Emergency Visit: Yes ED Registration Date: 09/15/18 Care time: The patient presented to the Emergency Department on the above date and was hospitalized for further evaluation of their emergent condition. - New Patient This patient is new to me today: Yes Date on this admission: 09/15/18 - Critical Care Critical Care patient: No
[2018-09-15] MEDS: CEFEPIME 2 GM in DEXTROSE 5%-WATER 100 ML IVPB SCH (21:21)
[2018-09-15] MEDS: HEPARIN NA (PORCINE) 5,000 UNITS/ML 1ML VIAL SQ SCH (21:21)
[2018-09-16] MEDS: HEPARIN NA (PORCINE) 5,000 UNITS/ML 1ML VIAL SQ SCH ×3 (06:10→22:01)
[2018-09-16 07:42] LABS: HEMATOCRIT 43.7 % (35.4-49); HEMOGLOBIN 15.1 GM/dL (11.7-16.9); MCHC 34.5 g/dl (32.0-35.9); MEAN CELL VOLUME 89.8 fl (80-96); MEAN PLT VOLUME 7.3 fl (7.5-11.1); PLATELET COUNT 163 K/MM3 (134-434); RBC 4.86 M/mm3 (4.00-5.60); RDW 14.2 % (11.9-15.9); WHITE BLOOD COUNT 3.2 K/mm3 (4.0-10.0)
[2018-09-16 08:20] LABS: ALBUMIN 3.5 g/dl (3.4-5.0); ALK PHOS 88 U/L (45-117); ANION GAP 7 MMOL/L (8-16); BILIRUBIN,TOTAL 0.6 mg/dL (0.2-1); BLOOD UREA NITROGEN 19 mg/dL (7-18); CALCIUM 9.2 mg/dL (8.5-10.1); CHLORIDE 104 mmol/L (98-107); CO2 30 mmol/L (21-32); CREATININE 0.9 mg/dL (0.55-1.3); GLUCOSE,RANDOM 85 mg/dL (74-106); MAGNESIUM 2.4 mg/dL (1.8-2.4); POTASSIUM 4.5 mmol/L (3.5-5.1); SGOT/AST 90 U/L (15-37); SGPT/ALT 105 U/L (13-61); SODIUM 140 mmol/L (136-145); TOT PROT 7.1 g/dl (6.4-8.2)
[2018-09-16] MEDS ORDERED: PT OWN MED DRAWER 7, Y5N ONE ×2 (08:40→21:49)
[2018-09-16] MEDS ORDERED: ACETAMINOPHEN 325 MG TABLET (FP) PO PRN (08:51)
--- NOTE | 2018-09-16 08:58 | PN ---
Physical Exam: SUBJECTIVE: Patient seen and examined. He reports he is feeling well, but has some stomach cramps in his RUQ. Patient has been receiving Cefipime through peripheral line. Spoke with IR about use of PICC line, will try next dose of Cefipime Left message for urologist about when his fabian can be removed. OBJECTIVE: Vital Signs Period Temp Pulse Resp BP Sys/Hernández Pulse Ox Last 24 Hr 97.5 F-98.2 F 63-91 16-18 97-102/60-75 97-100 GENERAL: Thin, awake, alert, and fully oriented, in no acute distress. HEAD: Normal with no signs of trauma. EYES: Arcus senilis b/l, pupils equal, round and reactive to light, extraocular movements intact, sclera anicteric, conjunctiva clear. No lid lag. EARS, NOSE, THROAT: Norman patent, oropharynx clear without exudates. Moist mucous membranes. NECK: Normal range of motion, supple without lymphadenopathy, JVD, or masses. LUNGS: Breath sounds equal, clear to auscultation bilaterally. No wheezes, and no crackles. No accessory muscle use. HEART: Regular rate and rhythm, normal S1 and S2 without murmur, rub or gallop. ABDOMEN: Soft, nontender, not distended, normoactive bowel sounds, no guarding, no rebound, no masses. No hepatomegaly or splenomegaly. : +Fabian with clear yellow urine MUSCULOSKELETAL: Normal range of motion at all joints. No bony deformities or tenderness. No CVA tenderness. UPPER EXTREMITIES: +PICC, no redness or swelling around site, No cyanosis. No clubbing. No peripheral edema. LOWER EXTREMITIES: 2+ pulses, warm, well-perfused. No calf tenderness. No peripheral edema. NEUROLOGICAL: No facial droop, deaf PSYCHIATRIC: Cooperative. Good eye contact. Appropriate mood and affect. SKIN: Warm, dry, normal turgor, no rashes or lesions noted, normal capillary refill. Laboratory Results - last 24 hr 09/15/18 09/15/18 09/16/18 10:55 10:55 06:00 WBC 3.8 L 3.2 L RBC 4.92 4.86 Hgb 14.9 15.1 Hct 43.7 43.7 MCV 88.9 89.8 MCH 30.3 31.0 MCHC 34.1 34.5 RDW 14.4 14.2 Plt Count 171 163 MPV 7.6 7.3 L Absolute Neuts (auto) 2.4 Neutrophils % 62.3 D Lymphocytes % 26.4 D Monocytes % 9.3 Eosinophils % 1.3 Basophils % 0.7 Nucleated RBC % 0 Sodium 138 Potassium 4.6 Chloride 103 Carbon Dioxide 27 Anion Gap 8 BUN 18 Creatinine 0.9 Creat Clearance w eGFR > 60 Random Glucose 86 Calcium 8.9 Magnesium Total Bilirubin 0.5 AST 118 H ALT 114 H Alkaline Phosphatase 93 Total Protein 7.6 Albumin 3.9 09/16/18 06:00 WBC RBC Hgb Hct MCV MCH MCHC RDW Plt Count MPV Absolute Neuts (auto) Neutrophils % Lymphocytes % Monocytes % Eosinophils % Basophils % Nucleated RBC % Sodium 140 Potassium 4.5 Chloride 104 Carbon Dioxide 30 Anion Gap 7 L BUN 19 H Creatinine 0.9 Creat Clearance w eGFR > 60 Random Glucose 85 Calcium 9.2 Magnesium 2.4 Total Bilirubin 0.6 AST 90 H ALT 105 H Alkaline Phosphatase 88 Total Protein 7.1 Albumin 3.5 Active Medications Generic Name Dose Route Start Last Admin Trade Name Freq PRN Reason Stop Dose Admin Acetaminophen 650 mg 09/16/18 08:51 Tylenol - PO Q6H PRN PAIN LEVEL 4 - 6 Cefepime HCl 2 gm 09/15/18 15:18 Maxipime 2gm Ivpb (Premix) IVPB Q12H ESEQUIEL Heparin Sodium (Porcine) 5,000 unit 09/15/18 22:00 09/16/18 06:10 Heparin - SQ 5,000 unit TID ESEQUIEL Administration Cefepime HCl 2 gm/ Dextrose 100 mls @ 200 mls/hr 09/15/18 22:00 09/15/18 21: 21 IVPB 09/16/18 10:29 200 mls/hr BID ESEQUIEL Administration Pantoprazole Sodium 40 mg 09/16/18 10:00 Protonix Iv IVPUSH DAILY ESEQUIEL ASSESSMENT/PLAN: 53 year old male with a PMH significant for 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 He had a PICC line placed 09/14/18 for IV Cefipime for pseudamonas UTI. Doppler showed right brachial vein thrombus. Patient admitted to finish IV antibiotics through peripheral line Acute brachial vein thrombosis - Spoke with IR Dr. Yi who clarified the zeus thrombus was in the basilic vein with the PICC. clarification from Dr. Yi, left , - IR Dr. Hidalgo consulted - Recommends seeing if the patient can tolerate another dose through the PICC line - If he can, then patient can be d/tristan to home, if not, then okay to remove PICC and continue through peripheral line. - Since superficial vein, will not need AC - D/c PICC line Transaminitis - Trending down today: - AST/ALT: 118 -> 90, 114 -> 105 - Possibly SE from Cefipime - Monitor CMP Pseudamonas UTI - +Fabian - Spoke with urologist Dr. Adal Canela's office who gave instructions for him to report to his office for fabian presumed removal after d/c - Cefipime 2G IV q12h x 5 days - Administer through peripheral line BPH - Tamsulosin 0.4 mg PO qday FEN - PO intake adequate - Replete as needed - Regular diet Prophylaxis - SQ heparin Disp: FULL CODE Visit type - Emergency Visit Emergency Visit: No - New Patient This patient is new to me today: No - Critical Care Critical Care patient: No
[2018-09-16] MEDS: CEFEPIME 2 GM in DEXTROSE 5%-WATER 100 ML IVPB SCH (10:20)
[2018-09-16] MEDS: PANTOPRAZOLE SODIUM 40 MG VIAL IVPUSH SCH (10:20)
[2018-09-16] MEDS: CEFEPIME HCL/D5W 2 GM/50 ML PREMIX IVPB SCH ×2 (11:48→11:49)
[2018-09-16] MEDS: CEFEPIME 2 GM in DEXTROSE 5%-WATER - 100 ML IVPB SCH (22:01)
[2018-09-17] MEDS: HEPARIN NA (PORCINE) 5,000 UNITS/ML 1ML VIAL SQ SCH (06:27)
[2018-09-17 06:53] VITALS: BP 104/72; PULSE 60; TEMP 97.7
[2018-09-17 07:26] LABS: HEMATOCRIT 44.9 % (35.4-49); HEMOGLOBIN 15.4 GM/dL (11.7-16.9); MCH 30.6 pg (25.7-33.7); MCHC 34.3 g/dl (32.0-35.9); MEAN CELL VOLUME 89.3 fl (80-96); MEAN PLT VOLUME 7.5 fl (7.5-11.1); PLATELET COUNT 160 K/MM3 (134-434); RBC 5.03 M/mm3 (4.00-5.60); WHITE BLOOD COUNT 3.7 K/mm3 (4.0-10.0)
[2018-09-17 08:03] LABS: ALBUMIN 3.5 g/dl (3.4-5.0); ALK PHOS 93 U/L (45-117); ANION GAP 5 MMOL/L (8-16); BILIRUBIN,TOTAL 0.5 mg/dL (0.2-1); BLOOD UREA NITROGEN 18 mg/dL (7-18); CALCIUM 8.8 mg/dL (8.5-10.1); CHLORIDE 103 mmol/L (98-107); CO2 32 mmol/L (21-32); CREATININE 0.8 mg/dL (0.55-1.3); GLUCOSE,RANDOM 86 mg/dL (74-106); POTASSIUM 4.2 mmol/L (3.5-5.1); SGOT/AST 58 U/L (15-37); SGPT/ALT 88 U/L (13-61); SODIUM 139 mmol/L (136-145); TOT PROT 7.3 g/dl (6.4-8.2)
[2018-09-17] MEDS ORDERED: TAMSULOSIN HCL 0.4 MG CAP PO SCH (08:30)
[2018-09-17] MEDS ORDERED: PT OWN MED DRAWER 7, Y5N ONE (08:46)
[2018-09-17] MEDS: CEFEPIME 2 GM in DEXTROSE 5%-WATER - 100 ML IVPB SCH (09:34)
[2018-09-17] MEDS: PANTOPRAZOLE SODIUM 40 MG VIAL IVPUSH SCH (09:35)
--- NOTE | 2018-09-17 10:40 | DS ---
Physical Exam: SUBJECTIVE: Patient seen and examined. Patient had dose of Cefipime through his PICC line today with no complains, he will be d/tristan to home today with the Fabian. OBJECTIVE: Vital Signs Period Temp Pulse Resp BP Sys/Hernández Pulse Ox Last 24 Hr 97.7 F-98.2 F 60-81 18-20 104-105/66-84 PHYSICAL EXAM GENERAL: Thin, awake, alert, and fully oriented, in no acute distress. HEAD: Normal with no signs of trauma. EYES: Arcus senilis b/l, pupils equal, round and reactive to light, extraocular movements intact, sclera anicteric, conjunctiva clear. No lid lag. EARS, NOSE, THROAT: Norman patent, oropharynx clear without exudates. Moist mucous membranes. NECK: Normal range of motion, supple without lymphadenopathy, JVD, or masses. LUNGS: Breath sounds equal, clear to auscultation bilaterally. No wheezes, and no crackles. No accessory muscle use. HEART: Regular rate and rhythm, normal S1 and S2 without murmur, rub or gallop. ABDOMEN: Soft, nontender, not distended, normoactive bowel sounds, no guarding, no rebound, no masses. No hepatomegaly or splenomegaly. : +Fabian with clear yellow urine MUSCULOSKELETAL: Normal range of motion at all joints. No bony deformities or tenderness. No CVA tenderness. UPPER EXTREMITIES: +PICC, no redness or swelling around site, No cyanosis. No clubbing. No peripheral edema. LOWER EXTREMITIES: 2+ pulses, warm, well-perfused. No calf tenderness. No peripheral edema. NEUROLOGICAL: No facial droop, deaf PSYCHIATRIC: Cooperative. Good eye contact. Appropriate mood and affect. SKIN: Warm, dry, normal turgor, no rashes or lesions noted, normal capillary refill. 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 He had a PICC line placed 09/14/18 for IV Cefipime for pseudamonas UTI. Doppler showed right brachial vein thrombus. Acute brachial vein thrombosis - Spoke with IR Dr. Yi who clarified the zeus thrombus was in the basilic vein with the PICC. - IR Dr. Hidalgo consulted - Recommends if the patient can tolerate dose through the PICC line without too much discomfort, continue to use - Since superficial vein, will not need AC - Patient able to tolerate dose through picc, d/tristan to home today Transaminitis - Trending down today: - AST/ALT: 118 -> 58, 114 -> 88 today - Possibly SE from Cefipime - Monitor CMP Pseudamonas UTI - +Fabian - Spoke with urologist Dr. Adal Canela's office who instructed patient to keep fabian until his TURP procedure with him on 10/18/17. - Cefipime 2G IV q12h x 3 more days. VNS set up BPH - Tamsulosin 0.4 mg PO qday Minutes to complete discharge: 35 Discharge Summary Reason For Visit: RUE NUMBNESS Current Active Problems Acute brachial vein thrombosis (Acute) Arm pain (Acute) Pseudomonas urinary tract infection (Acute) Right arm numbness (Acute) - Instructions Diet, Activity, Other Instructions: Fam Smith were re-admitted to [facility] from 09/15 - 09/17 when you experienced right arm discomfort where your PICC line placed on 09/14/18 so you could have IV antibiotics for your UTI at home. Doppler ultrasound of your right arm showed a thrombus in the vein where your PICC was. Interventional Radiology was consulted, and they said that it is still okay to use the PICC even if there is some discomfort as long as it is tolerable. The thrombus is in a vein close to the surface, so this does not present a serious risk of causing further complications as opposed to if the clot was in an artery. You are cleared to be discharged back home today to finish up your course of IV antibiotics which the vising nurse will administer to you for the remaining doses. You have an appointment with your urologist Dr. Pizano on 10/18/18 for your TURP procedure. He instructed you to keep the fabian in until then. If you are experiencing discomfort or having difficulties with the fabian, please contact his office Please return to the ER if you have any signs or symptoms of chest pain, shortness of breath, uncontrollable fever, chills, nausea, vomiting, numbness, tingling, or weakness in any part of your body, changes in vision, or slurred speech. [facility] [phone] Referrals: Eladio Lawton MD [Staff Physician] - Leslie Zaidi MD [Primary Care Provider] - 10/18/18 Disposition: HOME - Home Medications Comprehensive Discharge Medication List: Ambulatory Orders Cefepime in Iso-Osm Dextrose [Cefepime 2 gm Injection] 2 gm IV Q12H #13 [email or web address] 09/14/18 Tamsulosin HCl [Flomax] 0.4 mg PO DAILY 09/15/18 This patient is new to me today: No Emergency Visit: No Critical Care patient: No - Discharge Referral Referred to [facility] No
== END 2018-09-17 14:05 | disposition home or self-care (01) | DRG 197 ==
LOC: JER 09:50 → JERBED 14:24 → J8W 15:53
PROVIDERS: ADMIT Internal Medicine; ATTEND Nurse Practitioner Adult Health
DX: I82.611 Acute embolism and thrombosis of superficial veins of right upper extremity (principal); R20.0 Anesthesia of skin; H91.90 Unspecified hearing loss, unspecified ear; N40.0 Benign prostatic hyperplasia without lower urinary tract symptoms; B96.5 Pseudomonas (aeruginosa) (mallei) (pseudomallei) as the cause of diseases classified elsewhere; N39.0 Urinary tract infection, site not specified; R74.0 Nonspecific elevation of levels of transaminase and lactic acid dehydrogenase [LDH]; Z87.891 Personal history of nicotine dependence; Y84.8 Other medical procedures as the cause of abnormal reaction of the patient, or of later complication, without mention of misadventure at the time of the procedure
CPT/HCPCS: 36415; 80053; 83735; 85025; 85027; 93930; 93971; 99285-25; J1644

== ENCOUNTER 2018-10-18 06:18 | Day surgery (SDC) | payer OTHER ==
[2018-10-15 18:28] VITALS: BMI 20.7
[2018-10-18] MEDS ORDERED: LIDOCAINE HCL/PF 2% SDV 5ML VIAL ONE (08:13)
[2018-10-18] MEDS ORDERED: MIDAZOLAM HCL 2 MG/2 ML SINGLE DOSE VIAL ONE (08:14)
[2018-10-18] MEDS ORDERED: PROPOFOL 20 ML ONE (08:14)
[2018-10-18] MEDS ORDERED: DEXAMETHASONE SOD PHOSPHATE 4 MG/1 ML VIAL ONE (08:50)
[2018-10-18] MEDS ORDERED: KETOROLAC TROMETHAMINE 30 MG/1 ML VIAL ONE (09:19)
[2018-10-18] MEDS ORDERED: ONDANSETRON 4 MG/2 ML VIAL IVPUSH PRN (09:53)
[2018-10-18] MEDS ORDERED: oxyCODONE HCL 5 MG TABLET PO PRN (09:53)
[2018-10-18] MEDS ORDERED: LACTATED RINGERS SOLUTION 1,000 ML IV SCH (10:00)
[2018-10-18] MEDS ORDERED: MEPERIDINE HCL CARPU-JECT 25 MG/1 ML DISP.SYRIN IVPUSH ONE (10:15)
[2018-10-18] MEDS ORDERED: MEPERIDINE HCL CARPU-JECT 25 MG/1 ML DISP.SYRIN ONE (10:51)
--- NOTE | 2018-10-18 11:12 | OP ---
Operative Note - Note: Operative Date: 10/18/18 Pre-Operative Diagnosis: bph/urinary retention Operation: transurethral resection and vaporization of the prostate Findings: 3+ obstructive prostate Post-Operative Diagnosis: Same as Pre-op Surgeon: Eladio Lawton Anesthesia: General Specimens Removed: prostatic chips Estimated Blood Loss (mls): 30 Drains & Tubes with Location: 22 fr fabian to straight drainare with light traction Operative Report Dictated: Yes
[2018-10-18] MEDS ORDERED: oxyCODONE HCL 5 MG TABLET ONE (12:12)
[2018-10-18 14:47] VITALS: BP 131/73; PULSE 71; TEMP 98
--- NOTE | 2018-10-19 00:35 | OP ---
DATE OF OPERATION: 10/18/2018 PREOPERATIVE DIAGNOSIS: Benign prostatic hypertrophy. Urinary retention. POSTOPERATIVE DIAGNOSIS: Benign prostatic hypertrophy. Urinary retention. PROCEDURE: Transurethral resection and vaporization of prostate using PlasmaKinetic/bipolar system. ATTENDING: Dani Lawton M.D. ANESTHESIA: General. DESCRIPTION OF OPERATION: The patient was brought in the operating room, placed in supine position on the operating room table. Anesthesia and preoperative antibiotics were administered without complications. Patient was then placed in the dorsal lithotomy position and prepped and draped in the usual sterile manner. A resectoscope was placed under visualization into the bladder. The bladder was investigated and noted to have no evidence of stones or neoplasm. A 3+ obstructive prostate was noted. Resection of the prostate in order to debulk the prostate was performed initially. The margins of the resection were the bladder neck proximally and the verumontanum distally. The resection was performed in a 360-degree fashion. The resection was taken down to the level of the pseudocapsule of the prostate. Once this was performed, all prostatic chips were evacuated from the bladder utilizing the Summize evacuator. At this point, the working element, which had been the loop, was changed to a button. Vaporization and cauterization was then ensured utilizing the button element of the bipolar system. Residual tissue was vaporized, and excellent hemostasis was attained within the prostatic fossa. The margins of the vaporization and cauterization were the bladder neck proximally and the verumontanum distally. This was done again in a 360-degree fashion. Excellent hemostasis was attained. The bladder was investigated and noted to have no evidence of residual prostatic tissue. There was no evidence of perforation of the bladder. The abdomen was soft on examination during the procedure. With excellent hemostasis, the resectoscope was removed, and a Hooker catheter placed, 30 mL were inflated into the balloon of the catheter and placed on light traction. Excellent drainage was noted which was light pink in color. The disposition of the patient was to the recovery room. The catheter had been placed to straight drainage. The patient will be observed in the recovery room and the postop area. If the patient continues to do well, he will be discharged home. DANI ALBA M.D. /[id number]
--- NOTE | 2018-10-19 17:09 | PATH ---
Surgical Pathology Report Patient Name: MARISELA CISNEROS [facility]. Rec. #: [id number] /Age/Gender: 1965 (Age: 53) / M Account: [id number] Location: [facility] Taken: 10/18/2018 Received: 10/18/2018 Reported: 10/19/2018 Physicians: Eladio Lawton Specimen(s) Received PROSTATE CHIPS Clinical History Benign prostatic hyperplasia Final Diagnosis PROSTATE TISSUE, TRANSURETHRAL RESECTION OF THE PROSTATE: BENIGN PROSTATIC TISSUE WITH STROMAL AND GLANDULAR HYPERPLASIA, ACUTE AND CHRONIC PROSTATITIS. ADJACENT UROTHELIAL MUCOSA WITH ACUTE AND CHRONIC INFLAMMATION, CYSTITIS CYSTICA, AND CYSTITIS GLANDULARIS. Electronically Signed Rani Bauman M.D. Gross Description Received in formalin labeled "prostate tissue," is a 6 g, 6.2 x 6.0 x 0.5 cm aggregate of multiple fairbanks, irregular, firm to rubbery portions of tissue, consistent with prostate chips. The specimen is entirely submitted in 6 cassettes. /10/18/2018 saudi10/18/2018
== END 2018-10-18 14:58 | disposition home or self-care (01) ==
LOC: JASU-SURG 06:18
PROVIDERS: ATTEND Urology
PROC: 0VT08ZZ Resection of Prostate, Via Natural or Artificial Opening Endoscopic (ICD-10-PCS; principal; 2018-10-18 08:00)
DX: N40.1 Benign prostatic hyperplasia with lower urinary tract symptoms (principal); R33.8 Other retention of urine
CPT/HCPCS: 88305-TC; 94760

== ENCOUNTER 2018-10-19 19:14 | Emergency (ER) | payer OTHER ==
--- NOTE | 2018-10-19 19:32 | PDOC ---
Rapid Medical Evaluation Medical Evaluation: Allergies Allergy/AdvReac Type Severity Reaction Status Date / Time No Known Allergies Allergy Verified 10/18/18 07:02 I have performed a brief in-person evaluation of this patient. The patient presents with a chief complaint of: S/P TURP 10/18 presenting with leaking from Hooker Pertinent physical exam findings: Deferred I have ordered the following: Hooker The patient will proceed to the ED for further evaluation. 10/19/18 19:31
[2018-10-19 19:35] VITALS: TEMP 98
--- NOTE | 2018-10-19 21:43 | PDOC ---
History of Present Illness - General History Source: Patient Exam Limitations: Other <Sherice Perry - Last Filed: 10/19/18 21:36> - History of Present Illness Initial Comments: 10/19/18 21:57 The patient is a 53 year old male, with a significant past medical history of deafness and BPH, who presents to the emergency department with, a leaking leg bag. As per patient, his leg bag was leaking at his penis. He denies any leaking at his bag. He denies any pain or abnormal discharge to the penis. He denies any recent fevers, chills, headache or dizziness. He denies any recent nausea, vomit, diarrhea or constipation. He denies any recent chest pain or shortness of breath. Allergies: NKDA Social History: Nonsmoker. Denies EtOH use and recreational drug use. Primary Care Physician: Dr. Zaidi Urologist: Dr. Lawton <Elvia Linares - Last Filed: 10/19/18 22:29> - General Chief Complaint: Urinary Catheter Problem Stated Complaint: CATHETER LEAKING Time Seen by Provider: 10/19/18 21:27 Past History - Past Medical History Anemia: No Asthma: No Cancer: No Cardiac Disorders: No CVA: No COPD: No CHF: No Dementia: No Diabetes: No GI Disorders: No Disorders: No HTN: No Hypercholesterolemia: No Liver Disease: No Seizures: No Thyroid Disease: No Other medical history: PROSTATE; TURP 10/18/2018 - Surgical History Abdominal Surgery: No Appendectomy: No Cardiac Surgery: No Cholecystectomy: No Lung Surgery: No Neurologic Surgery: No Orthopedic Surgery: No - Immunization History Immunization Up to Date: Yes - Suicide/Smoking/Psychosocial Hx Smoking History: Never smoked Have you smoked in the past 12 months: No If you are a former smoker, when did you quit?: 30 yrs ago Hx Alcohol Use: No Drug/Substance Use Hx: No Substance Use Type: None Hx Substance Use Treatment: No <Sherice Perry - Last Filed: 10/19/18 21:36> <Elvia Linares - Last Filed: 10/19/18 22:29> - Past Medical History Allergies/Adverse Reactions: Allergies Allergy/AdvReac Type Severity Reaction Status Date / Time No Known Allergies Allergy Verified 10/18/18 07:02 Home Medications: Ambulatory Orders levoFLOXacin [Levaquin -] 500 mg PO DAILY #7 tablet 10/18/18 Review of Systems - Review of Systems Able to Perform ROS?: Yes Constitutional: No: Symptoms Reported, See HPI, Chills, Diaphoresis, Fever, Loss of Appetite, Malaise, Night Sweats, Weakness, Weight Stable, Unintentional Wgt. Loss, Unexplained wgt Loss, Other HEENTM: No: Symptoms Reported, See HPI, Eye Pain, Blurred Vision, Tearing, Recent change in vision, Double Vision, Cataracts, Ear Pain, Ocular Prothesis, Ear Discharge, Nose Pain, Nose Congestion, Tinnitus, Nose Bleeding, Hearing Loss , Throat Pain, Throat Swelling, Mouth Pain, Dental Problems, Difficulty Swallowing, Mouth Swelling, Other Respiratory: No: Symptoms reported, See HPI, Cough, Orthopnea, Shortness of Breath, SOB with Exertion, SOB at Rest, Stridor, Wheezing, Productive cough, Hemoptysis, Other Cardiac (ROS): No: Symptoms Reported, See HPI, Chest Pain, Edema, Irregular Heart Rate, Lightheadedness, Palpitations, Syncope, Chest Tightness, Other ABD/GI: No: Symptoms Reported, See HPI, Abdominal Distended, Abd. Pain w/ defecation, Blood Streaked Bowels, Constipated, Diarrhea, Difficulty Swallowing , Nausea, Poor Appetite, Poor Fluid Intake, Rectal Bleeding, Vomiting, Indigestion, Abdominal cramping, Tarry Stools, Other : Yes: Other Musculoskeletal: Yes: Symptoms Reported Integumentary: Yes: Symptoms Reported Neurological: Yes: Symptoms reported <Sherice Perry - Last Filed: 10/19/18 21:36> - Review of Systems Able to Perform ROS?: Yes <Elvia Linares - Last Filed: 10/19/18 22:29> *Physical Exam - Vital Signs Last Vital Signs Temp Pulse Resp BP Pulse Ox 98.0 F 75 20 109/67 74 L 10/19/18 19:30 10/19/18 19:30 10/19/18 19:30 10/19/18 19:30 10/19/18 19:30 - Physical Exam Comments: 10/19/18 21:40 GENERAL: Awake, in no acute distress HEAD: No signs of trauma EYES: PERRLA, EOMI, sclera anicteric, conjunctiva clear, visual acuity grossly intact NECK: Normal ROM, supple, no lymphadenopathy, JVD, or masses LUNGS: Breath sounds equal, clear to auscultation bilaterally. No wheezes, and no crackles. Normal work of breathing. HEART: Regular rate and rhythm, normal S1 and S2, no murmurs, rubs or gallops ABDOMEN: Soft, nontender, normoactive bowel sounds. No guarding, no rebound. No masses. Non-distended. : Penis and scrotum externally within normal limits with no lesions, there is a Hooker catheter in place draining clear yellow urine CHEST WALL: BACK: No midline tenderness. EXTREMITIES: Normal range of motion, no edema. No clubbing or cyanosis. No erythema, or tenderness NEUROLOGICAL: Alert, oriented 4, nonfocal SKIN: Warm, Dry, normal turgor, no rashes or lesions noted. <Sherice Perry Tarah - Last Filed: 10/19/18 21:36> - Vital Signs Last Vital Signs Temp Pulse Resp BP Pulse Ox 98.0 F 75 20 109/67 74 L 10/19/18 19:30 10/19/18 19:30 10/19/18 19:30 10/19/18 19:30 10/19/18 19:30 <Elvia Linares - Last Filed: 10/19/18 22:29> Moderate Sedation - Procedure Monitoring Vital Signs: Procedure Monitoring Vital Signs Temperature 98.0 F 10/19/18 19:30 Pulse Rate 75 10/19/18 19:30 Respiratory Rate 20 10/19/18 19:30 Blood Pressure 109/67 10/19/18 19:30 O2 Sat by Pulse Oximetry (%) 74 L 10/19/18 19:30 <Sherice Perry Tarah - Last Filed: 10/19/18 21:36> - Procedure Monitoring Vital Signs: Procedure Monitoring Vital Signs Temperature 98.0 F 10/19/18 19:30 Pulse Rate 75 10/19/18 19:30 Respiratory Rate 20 10/19/18 19:30 Blood Pressure 109/67 10/19/18 19:30 O2 Sat by Pulse Oximetry (%) 74 L 10/19/18 19:30 <Elvia Linares - Last Filed: 10/19/18 22:29> Medical Decision Making - Medical Decision Making 10/19/18 21:44 <Sherice Perry - Last Filed: 10/19/18 21:36> *DC/Admit/Observation/Transfer - Discharge Dispostion Decision to Admit order: No - Attestations Physician Attestion: 10/19/18 21:54 I, Dr Sherice Perry, attest that this document has been prepared under my direction and personally reviewed by me in its entirety. I further attest, that it accurately reflects all work, procedures and medical decision making performed by me. <Sherice Perry - Last Filed: 10/19/18 21:36> - Attestations Scribe Attestion: 10/19/18 21:58 Documentation prepared by Elvia Linares, acting as medical recruiter for Sherice Perry DO. <Elvia Linares - Last Filed: 10/19/18 22:29> Diagnosis at time of Disposition: Hooker catheter problem Qualifiers: Encounter type: initial encounter Qualified Code(s): T83.9XXA - Unspecified complication of genitourinary prosthetic device, implant and graft, initial encounter - Discharge Dispostion Disposition: HOME Condition at time of disposition: Stable - Referrals Referrals: Eladio Lawton MD [Primary Care Provider] - - Patient Instructions Printed Discharge Instructions: How to Care for Your Hooker Catheter -- Male Additional Instructions: Follow up with your urologist as discussed. Return for vomiting fever or pain. - Post Discharge Activity
[2018-10-19 22:02] VITALS: BP 114/78; PULSE 74
== END 2018-10-19 21:59 | disposition home or self-care (01) ==
LOC: JER 19:14
DX: T83.038A Leakage of other urinary catheter, initial encounter (principal); Y84.6 Urinary catheterization as the cause of abnormal reaction of the patient, or of later complication, without mention of misadventure at the time of the procedure; Y92.038 Other place in apartment as the place of occurrence of the external cause; Y73.8 Miscellaneous gastroenterology and urology devices associated with adverse incidents, not elsewhere classified; N40.0 Benign prostatic hyperplasia without lower urinary tract symptoms; H91.8X3 Other specified hearing loss, bilateral
CPT/HCPCS: 99282-25

== ENCOUNTER 2019-02-03 21:42 | Emergency (ER) | payer OTHER ==
--- NOTE | 2019-02-03 21:56 | PDOC ---
Rapid Medical Evaluation Chief Complaint: Cold Symptoms Time Seen by Provider: 02/03/19 21:55 Medical Evaluation: Allergies Allergy/AdvReac Type Severity Reaction Status Date / Time No Known Allergies Allergy Verified 10/18/18 07:02 02/03/19 21:58 I have performed a brief in-person evaluation of this patient. The patient presents with a chief complaint of: congestion/itching Pertinent physical exam findings:stable and in NAD, non-focal I have ordered the following: n/a The patient will proceed to the ED for further evaluation.
[2019-02-03 22:00] VITALS: BP 156/71; PULSE 75; TEMP 98; BMI 19.6
--- NOTE | 2019-02-03 22:56 | PDOC ---
History of Present Illness - General Chief Complaint: Cold Symptoms Stated Complaint: FEELING SICK Time Seen by Provider: 02/03/19 21:55 History Source: Patient Exam Limitations: Other (deaf patient. ) - History of Present Illness Initial Comments: 02/03/19 22:51 53-year-old male complaining of nasal congestion. Reports that he has ALLERGIES and currently on Satcher seen since last week. Patient is reporting that he is unable to breathe from the nose. Patient does not have facial pain or tenderness denies fevers/chills, nausea, vomiting, cough, abdominal pain. Patient reports that he was taking Afrin with no relief in pain. no past medical history Had prostate surgery in the past 02/03/19 22:52 Past History - Past Medical History Allergies/Adverse Reactions: Allergies Allergy/AdvReac Type Severity Reaction Status Date / Time No Known Allergies Allergy Verified 02/03/19 22:01 Home Medications: Ambulatory Orders Cetirizine HCl 10 mg PO DAILY 02/03/19 Fluticasone Prop 0.05% Nasal [Flonase -] 1 - 2 spray NS BID #1 spray.pump Anemia: No Asthma: No Cancer: No Cardiac Disorders: No CVA: No COPD: No CHF: No Dementia: No Diabetes: No GI Disorders: No Disorders: No HTN: No Hypercholesterolemia: No Liver Disease: No Seizures: No Thyroid Disease: No Other medical history: deaf - Surgical History Abdominal Surgery: No Appendectomy: No Cardiac Surgery: No Cholecystectomy: No Lung Surgery: No Neurologic Surgery: No Orthopedic Surgery: No - Immunization History Immunization Up to Date: Yes - Suicide/Smoking/Psychosocial Hx Smoking History: Never smoked Have you smoked in the past 12 months: No If you are a former smoker, when did you quit?: 30 yrs ago Information on smoking cessation initiated: No Hx Alcohol Use: No Drug/Substance Use Hx: No Substance Use Type: None Hx Substance Use Treatment: No Review of Systems - Review of Systems Able to Perform ROS?: Yes Is the patient limited Scottish proficient: No Constitutional: No: Symptoms Reported, See HPI, Chills, Diaphoresis, Fever, Loss of Appetite, Malaise, Night Sweats, Weakness, Weight Stable, Unintentional Wgt. Loss, Unexplained wgt Loss, Other HEENTM: Yes: Nose Congestion. No: Symptoms Reported, See HPI, Eye Pain, Blurred Vision, Tearing, Recent change in vision, Double Vision, Cataracts, Ear Pain, Ocular Prothesis, Ear Discharge, Nose Pain, Tinnitus, Nose Bleeding, Hearing Loss, Throat Pain, Throat Swelling, Mouth Pain, Dental Problems, Difficulty Swallowing, Mouth Swelling, Other *Physical Exam - Vital Signs Last Vital Signs Temp Pulse Resp BP Pulse Ox 98.0 F 75 18 156/71 100 02/03/19 21:56 02/03/19 21:56 02/03/19 21:56 02/03/19 21:56 02/03/19 21:56 - Physical Exam General Appearance: Yes: Appropriately Dressed HEENT: positive: Nasal Congestion. negative: Sinus Tenderness Neck: negative: Tender, Trachea midline, Normal Thyroid, Rigid, Supple, Carotid bruit, Decreased range of motion, Stridor, Lymphadenopathy (R), Lymphadenopathy (L), Rigidity, Tender lateral, Tender midline, Thyromegaly, Other Respiratory/Chest: positive: Lungs Clear. negative: Chest Tender, Normal Breath Sounds, Respiratory Distress, Accessory Muscle Use, Labored Respiration, Rapid RR, Decreased Breath Sounds, Paradoxal Breathing, Crackles, Rales, Rhonchi , Stridor, Wheezing, Hyperresonant, Dullness, Plerual Rub, Other Integumentary: positive: Normal Color, Dry, Warm Neurologic: positive: Fully Oriented, Alert, Normal Mood/Affect Progress Note - Progress Note Progress Note: A: nasal congestion P: flonase *DC/Admit/Observation/Transfer Diagnosis at time of Disposition: Nasal congestion with rhinorrhea - Discharge Dispostion Disposition: HOME - Prescriptions Prescriptions: Fluticasone Prop 0.05% Nasal [Flonase -] 1 - 2 spray NS BID #1 spray.pump - Referrals Referrals: Jose L Escalante MD [Primary Care Provider] - - Patient Instructions Printed Discharge Instructions: Allergic Rhinitis Additional Instructions: Drink warm fluids. Use Flonase twice daily to both nostrils Continue Cetrizine seen as prescribed. Follow-up with your doctor as soon as possible - Post Discharge Activity Forms/Work/School Notes: Back to Work
== END 2019-02-03 23:07 | disposition home or self-care (01) ==
LOC: JERFT 21:42
DX: J30.9 Allergic rhinitis, unspecified (principal); J34.89 Other specified disorders of nose and nasal sinuses
CPT/HCPCS: 99281-25

== ENCOUNTER 2019-02-14 09:38 | Emergency (ER) | payer OTHER ==
[2019-02-14 10:06] VITALS: TEMP 98.9
[2019-02-14 10:07] VITALS: BMI 19.6
--- NOTE | 2019-02-14 10:24 | PDOC ---
History of Present Illness - General Chief Complaint: Lightheaded Stated Complaint: WEAKNESS,DIZZINESS Time Seen by Provider: 02/14/19 10:24 History Source: Patient Exam Limitations: Language Barrier, Other (patient is deaf) - History of Present Illness Initial Comments: 02/14/19 11:06 Patient is a 53 year old male with history of bilateral anacusis, benign prostatic hyperplasia presents with complaint of dizziness. Patient admits symptoms began spontaneously today, without clear provoking factor. He denies having these symptoms in the past. He states that he had eggs for breakfast, and drank glass of water today. He denies sick contacts, fall, loss of consciousness, changes in vision, chest pain, palpitations, abdominal pain, nausea, vomiting, diarrhea, any bleeding. PMH: bilateral anacusis, benign prostatic hyperplasia PSH: Denies Medications: Denies Social: Former smoker, quit 30 years ago. Denies alcohol consumption, denies illicit drug use. Works as a [employer] Past History - Travel Traveled outside of the country in the last 30 days: No - Past Medical History Allergies/Adverse Reactions: Allergies Allergy/AdvReac Type Severity Reaction Status Date / Time No Known Allergies Allergy Verified 02/03/19 22:01 Home Medications: Ambulatory Orders Meclizine HCl [Antivert -] 25 mg PO TID PRN 7 Days #21 tablet 02/14/19 Anemia: No Asthma: No Cancer: No Cardiac Disorders: No CVA: No COPD: No CHF: No Dementia: No Diabetes: No GI Disorders: No Disorders: No HTN: No Hypercholesterolemia: No Liver Disease: No Seizures: No Thyroid Disease: No - Surgical History Abdominal Surgery: No Appendectomy: No Cardiac Surgery: No Cholecystectomy: No Lung Surgery: No Neurologic Surgery: No Orthopedic Surgery: No - Immunization History Immunization Up to Date: Yes - Suicide/Smoking/Psychosocial Hx Smoking History: Former smoker Have you smoked in the past 12 months: No If you are a former smoker, when did you quit?: 1989 Information on smoking cessation initiated: No Hx Alcohol Use: No Drug/Substance Use Hx: No Substance Use Type: None Hx Substance Use Treatment: No Review of Systems - Review of Systems Able to Perform ROS?: Yes Is the patient limited [place] proficient: Yes Constitutional: No: Chills, Diaphoresis, Fever HEENTM: No: Blurred Vision, Recent change in vision, Throat Pain, Difficulty Swallowing Respiratory: No: Cough, Orthopnea, Shortness of Breath, Stridor, Wheezing Cardiac (ROS): No: Chest Pain, Palpitations, Syncope ABD/GI: No: Blood Streaked Bowels, Constipated, Diarrhea, Rectal Bleeding : No: Burning, Dysuria, Hematuria Neurological: No: Headache, Numbness, Paresthesia, Weakness *Physical Exam - Vital Signs Last Vital Signs Temp Pulse Resp BP Pulse Ox 98.9 F 68 16 112/74 99 02/14/19 10:01 02/14/19 10:02/14/19 10:02/14/19 10:02/14/19 10:01 - Physical Exam General Appearance: Yes: Appropriately Dressed. No: Apparent Distress, Disheveled HEENT: positive: EOMI, PIYUSH, TMs Normal (no erythema, no drainage, no cerumen impaction, ). negative: Scleral Icterus (R), Scleral Icterus (L) Neck: positive: Supple. negative: Lymphadenopathy (R), Lymphadenopathy (L), Rigidity Respiratory/Chest: positive: Lungs Clear, Normal Breath Sounds. negative: Respiratory Distress, Accessory Muscle Use, Rales, Rhonchi, Stridor, Wheezing Cardiovascular: positive: Regular Rhythm, Regular Rate, S1, S2. negative: Murmur Gastrointestinal/Abdominal: positive: Flat, Soft. negative: Normal Bowel Sounds , Distended, Guarding, Rebound Integumentary: positive: Dry, Warm Neurologic: positive: cash management associate II-XII NML intact, Fully Oriented, Alert, Motor Strength 5/5 ED Treatment Course - LABORATORY CBC & Chemistry Diagram: 02/14/19 11:00 02/14/19 11:00 Medical Decision Making - Medical Decision Making 02/14/19 11:09 Patient is a 53 year old male with history of BPH presents with complaint of dizziness. Differential includes dehydration, arrhythmia, electrolyte derangement, vertigo Patient was dizzy upon standing to measure orthostatic BP (supine 106/70. standing 128/ 83 -patient report immediate dizziness) Will hydrate with 1L bolus NS Obtain EKG Draw CBC, BMP Reevaluate. 02/14/19 11:15 EKG shows normal sinus rhythm at 62BPM, right superior axis deviation. 02/14/19 12:20 Will order Meclizine for vertigo Administer additional 1L bolus of NS Reevaluate. Patient endorses significant symptomatic improvement after Meclizine, and 2L IV normal saline Blood pressure no longer orthostatic Patient's gait stable upon exam. Will discharge patient home with Meclizine. To follow up with primary care physician, and neurologist. Discharge information, medication and follow up recommendations discussed with patient at bedside. All questions, concerns addressed and answered. Family express understanding, and agreement with plan. *DC/Admit/Observation/Transfer Diagnosis at time of Disposition: Dizziness - Discharge Dispostion Disposition: HOME Condition at time of disposition: Improved Decision to Admit order: No - Prescriptions Prescriptions: Meclizine HCl [Antivert -] 25 mg PO TID PRN 7 Days #21 tablet PRN Reason: Vertigo - Referrals Referrals: Jose L Escalante MD [Primary Care Provider] - Call tomorrow Nelson Key MD [Staff Physician] - Call tomorrow (Dizziness ) - Patient Instructions Additional Instructions: You were seen in the Emergency Department for dizziness. Your blood work, and CT scan were within normal limits You were treated with medication Meclizine for your dizziness. You are being discharged home. Take Meclizine 25mg every 8 hours as needed for dizziness. A prescription has been sent to your pharmacy Follow up with your primary care physician within one- two days after discharge. Follow up with Neurologist (Dr. Key) within one- two days after discharge. Return to the nearest Emergency Department if you experience worsening symptoms , subjective fevers, chills, shortness of breath, chest pain, palpitations, abdominal pain, nausea, vomiting, loss of consciousness, fall, any trauma. - Post Discharge Activity Forms/Work/School Notes: Back to Work
--- NOTE | 2019-02-14 10:50 | PDOC ---
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 Symptoms started suddenly, described as head/room spinning/off balance. Not lightheaded. No recent illness, headache, trauma. No vomiting. no ear pain. - Physicial Exam PE: GENERAL: Awake, alert, and fully oriented, in no acute distress HEAD: No signs of trauma EYES: PERRLA, EOMI, sclera anicteric, conjunctiva clear ENT: Auricles normal inspection, hearing grossly normal, nares patent, oropharynx clear without exudates. Moist mucosa. NECK: Normal ROM, supple, no lymphadenopathy, JVD, or masses LUNGS: Breath sounds equal, clear to auscultation bilaterally. No wheezes, and no crackles HEART: Regular rate and rhythm, normal S1 and S2, no murmurs, rubs or gallops ABDOMEN: Soft, nontender, normoactive bowel sounds. No guarding, no rebound. No masses EXTREMITIES: Normal range of motion, no edema. No clubbing or cyanosis. No cords, erythema, or tenderness NEUROLOGICAL: Cranial nerves grossly intact with the exception of CN8. Motor and sensation intact SKIN: Warm, Dry, normal turgor, no rashes or lesions noted. - Medical Decision Making Pt is well-appearing, mildly dehydrated. Exam otherwise normal. Symptoms most consistent with vertigo. In light of prior history of hydrocephalus as a child, will obtain CTH to further evaluate. Will give tylenol and meclizine.
[2019-02-14] MEDS ORDERED: SODIUM CHLORIDE 1,000 ML IV STA ×2 (10:51→12:17)
[2019-02-14 11:34] LABS: HEMATOCRIT 45.3 % (35.4-49); HEMOGLOBIN 15.1 GM/dL (11.7-16.9); MCH 29.7 pg (25.7-33.7); MCHC 33.3 g/dl (32.0-35.9); MEAN CELL VOLUME 89.1 fl (80-96); MEAN PLT VOLUME 7.2 fl (7.5-11.1); PLATELET COUNT 184 K/MM3 (134-434); RBC 5.09 M/mm3 (4.00-5.60); WHITE BLOOD COUNT 4.1 K/mm3 (4.0-10.0)
[2019-02-14 11:55] LABS: CALCIUM 8.9 mg/dL (8.5-10.1); CREATININE 0.8 mg/dL (0.55-1.3); POTASSIUM 4.5 mmol/L (3.5-5.1)
[2019-02-14] MEDS ORDERED: MECLIZINE HCL 25 MG TABLET (FP) PO ONE (12:17)
[2019-02-14] MEDS ORDERED: MECLIZINE HCL 25 MG TABLET (FP) ONE (12:39)
[2019-02-14 15:21] VITALS: BP 122/78; PULSE 64
--- NOTE | 2019-02-15 12:10 | EKG ---
Test Reason : Blood Pressure : / mmHG Vent. Rate : 062 BPM Atrial Rate : 062 BPM P-R Int : 138 ms QRS Dur : 080 ms QT Int : 396 ms P-R-T Axes : 063 206 076 degrees QTc Int : 401 ms NORMAL SINUS RHYTHM RIGHT SUPERIOR AXIS DEVIATION POSSIBLE RIGHT VENTRICULAR HYPERTROPHY ABNORMAL ECG NO PREVIOUS ECGS AVAILABLE Confirmed by MD Conrad, Patrice ([id number]) on 02/15/2019 12:10:23 PM Referred By: Confirmed By:Patrice Martines MD
== END 2019-02-14 15:44 | disposition home or self-care (01) ==
LOC: JER 09:38
PROC: 3E0337Z Introduction of Electrolytic and Water Balance Substance into Peripheral Vein, Percutaneous Approach (ICD-10-PCS; principal; 2019-02-14)
DX: R42 Dizziness and giddiness (principal); N40.0 Benign prostatic hyperplasia without lower urinary tract symptoms
CPT/HCPCS: 36415; 70450-TC; 80048; 85027; 93005; 93010; 99284-25; J7030

== ENCOUNTER 2019-03-21 07:33 | Emergency (ER) | payer OTHER ==
[2019-03-21 07:47] VITALS: TEMP 98.4; BMI 24.2
--- NOTE | 2019-03-21 08:36 | PDOC ---
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 Patient also reported 3 days episodes of loose stools. Denies vomiting, fever, chills or back pains. Denies any other symptoms Timing/Duration: other (3 days) Past History - Past Medical History Allergies/Adverse Reactions: Allergies Allergy/AdvReac Type Severity Reaction Status Date / Time No Known Allergies Allergy Verified 03/21/19 09:31 Home Medications: Ambulatory Orders Meclizine HCl [Antivert -] 25 mg PO TID PRN 7 Days #21 tablet 02/14/19 Ciprofloxacin HCl [Cipro] 500 mg PO BID 7 Days #14 tablet 03/21/19 Ondansetron [Zofran Odt -] 4 mg SL Q8H PRN #12 od.tablet 03/21/19 Tamsulosin HCl [Flomax -] 0.4 mg PO DAILY 03/21/19 Anemia: No Asthma: No Cancer: No Cardiac Disorders: No CVA: No COPD: No CHF: No Dementia: No Diabetes: No GI Disorders: No Disorders: No HTN: No Hypercholesterolemia: No Liver Disease: No Seizures: No Thyroid Disease: No Other medical history: prostate - Surgical History Abdominal Surgery: No Appendectomy: No Cardiac Surgery: No Cholecystectomy: No Lung Surgery: No Neurologic Surgery: No Orthopedic Surgery: No - Immunization History Immunization Up to Date: Yes - Suicide/Smoking/Psychosocial Hx Smoking History: Never smoked Have you smoked in the past 12 months: No If you are a former smoker, when did you quit?: 1989 Information on smoking cessation initiated: No Hx Alcohol Use: No Drug/Substance Use Hx: No Substance Use Type: None Hx Substance Use Treatment: No Review of Systems - Review of Systems Able to Perform ROS?: Yes Is the patient limited [place] proficient: No Constitutional: No: Chills, Fever, Malaise HEENTM: No: Symptoms Reported, Recent change in vision Respiratory: No: Symptoms reported Cardiac (ROS): No: Symptoms Reported ABD/GI: Yes: Symptoms Reported, See HPI, Constipated, Nausea, Abdominal cramping (suprapubic). No: Abdominal Distended, Blood Streaked Bowels, Diarrhea , Difficulty Swallowing, Poor Appetite, Rectal Bleeding, Vomiting, Indigestion, Tarry Stools : Yes: Symptoms Reported, See HPI, Frequency. No: Burning, Dysuria, Discharge , Hematuria, Incontinence, Urgency, Testicular Mass, Testicular Swelling, Lesions, Testicular Pain Musculoskeletal: No: Back Pain, Muscle Weakness All Other Systems: Reviewed and Negative *Physical Exam - Vital Signs Last Vital Signs Temp Pulse Resp BP Pulse Ox 98.4 F 96 H 16 101/67 98 03/21/19 07:42 03/21/19 07:42 03/21/19 07:42 03/21/19 07:42 03/21/19 07:42 - Physical Exam Comments: 03/21/19 08:36 GENERAL: Well developed, well nourished. Awake and alert. No acute distress. HEENT: Normocephalic, atraumatic. PERRLA, EOMI. No conjunctival pallor. Sclera are non-icteric. Moist mucous membranes. Oropharynx is clear. NECK: Supple. Full ROM. CARDIOVASCULAR: Regular rate and rhythm. No murmurs, rubs, or gallops. Distal pulses are 2+ and symmetric. PULMONARY: No evidence of respiratory distress. Lungs clear to auscultation bilaterally. No wheezing, rales or rhonchi. ABDOMINAL: Soft. Mild suprapubic tenderness. Non-distended. No rebound or guarding. No organomegaly. Normoactive bowel sounds. MUSCULOSKELETAL Normal range of motion at all joints. SKIN: Warm and dry. Normal capillary refill. No rashes. NEUROLOGICAL: Alert, awake, appropriate. Gait is normal without ataxia. PSYCHIATRIC: Cooperative. Good eye contact. Appropriate mood General Appearance: Yes: Nourished, Appropriately Dressed. No: Apparent Distress ED Treatment Course - LABORATORY CBC & Chemistry Diagram: 03/21/19 08:14 03/21/19 08:14 Medical Decision Making - Medical Decision Making 03/21/19 08:33 Patient who is deaf and mute with history of BPH present with complaint of three -day history of urinary frequency, nausea and suprapubic tenderness. Patient also reported 3 days episodes of loose stools. Denies vomiting, fever, chills or back pains. Denies any other symptoms Clinical exam significant for mild suprapubic discomfort otherwise normal exam. Symptoms likely UTI versus prostatitis versus gastroenteritis. CBC CMP labs ordered. UA and urine culture labs ordered. We will consider pelvic ultrasound based on lab results. 03/21/19 11:06 CBC and chemistry labs is unremarkable. UA shows no acute findings. Patient symptoms likely gastroenteritis and stable for outpatient management with PCP follow-up or urology f/u in 3 days if symptoms persist *DC/Admit/Observation/Transfer Diagnosis at time of Disposition: Dysuria, Acute gastroenteritis - Discharge Dispostion Condition at time of disposition: Stable Decision to Admit order: No - Prescriptions Prescriptions: Ciprofloxacin HCl [Cipro] 500 mg PO BID 7 Days #14 tablet Ondansetron [Zofran Odt -] 4 mg SL Q8H PRN #12 od.tablet PRN Reason: vomiting - Referrals Referrals: Lonnie Barahona MD., MD [Staff Physician] - - Patient Instructions Printed Discharge Instructions: DI for Dysuria -- Adult Additional Instructions: Take medication as prescribed . Increase fluid intake. Follow-up with referred urology if symptoms persist for more than 3 days - Post Discharge Activity Forms/Work/School Notes: Back to Work
[2019-03-21] MEDS ORDERED: ACETAMINOPHEN 1000 MG/100 ML VIAL (NON FORMULARY) IVPB ONE (08:46)
[2019-03-21] MEDS ORDERED: ACETAMINOPHEN INJECTION 100 ML IVPB ONE (08:50)
--- NOTE | 2019-03-21 08:57 | PDOC ---
*Physical Exam - Vital Signs Last Vital Signs Temp Pulse Resp BP Pulse Ox 98.4 F 96 H 16 101/67 98 03/21/19 07:42 03/21/19 07:42 03/21/19 07:42 03/21/19 07:42 03/21/19 07:42 ED Treatment Course - Medications Given in the ED: ED Medications Discontinued Medications Generic Name Dose Route Start Last Admin Trade Name Freq PRN Reason Stop Dose Admin Acetaminophen 1,000 mg 03/21/19 08:46 03/21/19 08:53 Ofirmev Injection - IVPB 03/21/19 08:47 1,000 mg ONCE ONE Administration Medical Decision Making - Medical Decision Making 03/21/19 08:56 The patient was seen and evaluated in conjunction with NAOMIE Berger under my direct supervision, ancillary studies were reviewed. I I agree with the plan as outlined by NAOMIE Berger. *DC/Admit/Observation/Transfer - Discharge Dispostion Condition at time of disposition: Stable - Referrals - Patient Instructions - Post Discharge Activity
[2019-03-21 09:17] LABS: BASO % 0.5 % (0-2.0); EOS % 0.8 % (0-4.5); HEMATOCRIT 43.6 % (35.4-49); HEMOGLOBIN 14.6 GM/dL (11.7-16.9); LYMPH % 13.7 % (8-40); MCH 29.8 pg (25.7-33.7); MCHC 33.4 g/dl (32.0-35.9); MEAN CELL VOLUME 89.3 fl (80-96); MEAN PLT VOLUME 7.5 fl (7.5-11.1); MONO % 7.4 % (3.8-10.2); NEUT % 77.6 % (42.8-82.8); RBC 4.88 M/mm3 (4.00-5.60); RDW 14.8 % (11.9-15.9); WHITE BLOOD COUNT 7.4 K/mm3 (4.0-10.0)
[2019-03-21 09:40] LABS: PLATELET COUNT 202 K/MM3 (134-434)
[2019-03-21 09:43] LABS: ALBUMIN 3.7 g/dl (3.4-5.0); BILIRUBIN,TOTAL 0.8 mg/dL (0.2-1); BLOOD UREA NITROGEN 12.3 mg/dL (7-18); CALCIUM 9.1 mg/dL (8.5-10.1); CREATININE 0.9 mg/dL (0.55-1.3); POTASSIUM 4.1 mmol/L (3.5-5.1); TOT PROT 7.4 g/dl (6.4-8.2)
[2019-03-21 10:05] LABS: EPI CELLS 0.6 /HPF (0-5/HPF); HYALINE CASTS 1 /lpf (0-8); URINE APPEARANCE CLEAR; URINE BACTERIA 0.7 /hpf (NEGATIVE); URINE BILIRUBIN NEGATIVE (NEGATIVE); URINE COLOR YELLOW; URINE GLUCOSE (UA) NEGATIVE (NEGATIVE); URINE KETONE NEGATIVE (NEGATIVE); URINE LEUK ESTERASE NEGATIVE (NEGATIVE); URINE NITRITE NEGATIVE (NEGATIVE); URINE PROTEIN NEGATIVE (NEGATIVE); URINE RBC 0 /hpf (0-4); URINE WBC 6 /hpf (0-5)
[2019-03-21 11:13] VITALS: BP 106/62; PULSE 86
== END 2019-03-21 11:14 | disposition home or self-care (01) ==
LOC: JER 07:33
PROC: 3E033NZ Introduction of Analgesics, Hypnotics, Sedatives into Peripheral Vein, Percutaneous Approach (ICD-10-PCS; principal; 2019-03-21)
DX: K52.9 Noninfective gastroenteritis and colitis, unspecified (principal); R30.0 Dysuria; N40.0 Benign prostatic hyperplasia without lower urinary tract symptoms; H91.93 Unspecified hearing loss, bilateral
CPT/HCPCS: 36415; 80053; 81003; 85025; 87086; 96374; 99283-25; J0131